=== PATIENT | male | born 1970 | race Hispanic/Latino ===

== ENCOUNTER 2020-05-04 18:53 | Inpatient (IN) | payer SELFPAY ==
[~2020-05-04] VITALS: Ht 162.6 cm; Wt 98.4 kg
[2020-05-04 19:00] VITALS: BP 160/99
[2020-05-04 19:15] LABS: BASOPHILS % (AUTO) 0.1 % (0.0-5.0); EOSINOPHILS % (AUTO) 3.6 % (0.0-8.0); HEMATOCRIT 42.3 % (42-54); MEAN CORPUSCULAR HEMOGLOBIN 29.1 pg (27.0-33.0); MEAN CORPUSCULAR HGB CONC 33.8 g/dL (32.0-36.0); MEAN CORPUSCULAR VOLUME 86.2 fL (79-99); MONOCYTES % (AUTO) 2.6 % (3.0-13.0); NEUTROPHILS % (AUTO) 89.4 % (40.0-77.0); PLATELET COUNT (AUTO) 108 K/uL (130-400); RED BLOOD CELL COUNT(AUTO) 4.91 MIL/uL (4.50-6.20); RED CELL DISTRIBUTION WIDTH 13.2 % (11.0-15.5); WHITE BLOOD COUNT (AUTO) 17.4 K/uL (4.8-10.8)
[2020-05-04 19:17] LABS: ABG BASE EXCESS 4.9 mmol/L (-2.0-3.0); ABG HCO3 29.5 mmol/L (21.0-28.0); ABG OXYGEN SATURATION 99.2 % (95.0-99.0); ABG PCO2 43 mmHg (35-48)
[2020-05-04 19:28] LABS: INR 0.96 (0.85-1.15); PROTHROMBIN TIME 10.5 SEC (9.6-11.6)
[2020-05-04 19:29] LABS: PARTIAL THROMBOPLASTIN TIME 22.7 SEC (26.3-35.5)
[2020-05-04 19:38] LABS: B-TYPE NATRIURETIC PEPTIDE 214 pg/mL (0-100)
[2020-05-04 19:49] LABS: CREATININE 1.2 mg/dL (0.5-1.5); POTASSIUM 4.3 mmol/L (3.5-5.1)
[2020-05-04 19:53] LABS: ALBUMIN 1.6 g/dL (3.5-5.0); BILIRUBIN,TOTAL 0.7 mg/dL (0.2-1.0); TOTAL PROTEIN, SERUM 4.7 g/dL (6.0-8.3)
[2020-05-04 20:15] LABS: APPEARANCE,URINE Clear (CLEAR); BILIRUBIN,URINE Negative (NEGATIVE); COLOR,URINE Yellow (YELLOW); GLUCOSE, URINE (UA) TRACE mg/dL (NEGATIVE); KETONES,URINE Negative (NEGATIVE); LEUKOCYTE ESTERASE ,URINE Negative (NEGATIVE); NITRATE,URINE Negative (NEGATIVE); OCCULT BLOOD,URINE Moderate (NEGATIVE); PH,URINE 5.5 (5.0-8.0); PROTEIN,URINE >=1000 mg/dL (NEGATIVE); UROBILINOGEN,URINE 0.2 mg/dL (0.2-1.0)
[2020-05-04 20:30] LABS: BACTERIA,URINE Few /HPF (None Seen); MUCUS,URINE Moderate LPF (None Seen); SQUAMOUS EPITHELIAL CELL,UR Few /HPF (0-2)
[2020-05-04] MEDS ORDERED: ALBUTEROL 0.083% 2.5 MG/3 ML INH IH PRN (21:30)
[2020-05-04] MEDS ORDERED: ONDANSETRON 4MG INJ IV PRN (21:30)
[2020-05-04] MEDS ORDERED: DiphenhydrAMINE HCL 50 MG/ML VIAL IV PRN (21:30)
[2020-05-04] MEDS ORDERED: LACTULOSE 20 GM/30 ML UDCUP PO PRN (21:30)
[2020-05-04] MEDS ORDERED: ACETAMINOPHEN 325 MG TAB PO PRN ×2 (21:30)
[2020-05-04] MEDS ORDERED: GUAIFENESIN-DM 200/20 MG 10 ML PO PRN (21:30)
[2020-05-04] MEDS ORDERED: DIPHENHYDRAMINE HCL 25 MG CAPSULE PO PRN (21:30)
[2020-05-04] MEDS ORDERED: MAG/ALUM/SIMETH 30 ML UDCUP PO PRN (21:30)
[2020-05-04] MEDS ORDERED: NITROGLYCERIN 0.4 MG SL TAB SL PRN (21:30)
[2020-05-04] MEDS ORDERED: DEXAMETHASONE SOD PHOSPHATE 10MG/ML 1ML VIAL ONE (21:32)
[2020-05-04] MEDS ORDERED: CEFTRIAXONE 1G VIAL ONE (21:32)
[2020-05-04] MEDS ORDERED: AZITHROMYCIN 250 MG TABLET PO ONE (21:33)
[2020-05-04] MEDS ORDERED: ASPIRIN 325 MG TABLET ONE (21:53)
[2020-05-04] MEDS ORDERED: ERGOCALCIFEROL (VITAMIN D2) 50,000 UNIT CAPSULE ONE (22:00)
[2020-05-04] MEDS ORDERED: DOXYCYCLINE 100MG+NS 250ML 250 ML IV ONE (22:01)
[2020-05-04] MEDS: DOXYCYCLINE 100MG+NS 250ML IV SCH (23:00)
[2020-05-05 00:06] VITALS: BP 148/72
[2020-05-05 04:00] VITALS: BP 134/78
[2020-05-05 06:49] LABS: BASOPHILS % (AUTO) 0.1 % (0.0-5.0); HEMATOCRIT 37.2 % (42-54); LYMPHOCYTES % (AUTO) 1.8 % (21.0-51.0); MEAN CORPUSCULAR HEMOGLOBIN 28.7 pg (27.0-33.0); MEAN CORPUSCULAR HGB CONC 33.1 g/dL (32.0-36.0); MEAN CORPUSCULAR VOLUME 86.9 fL (79-99); MONOCYTES % (AUTO) 1.2 % (3.0-13.0); NEUTROPHILS % (AUTO) 96.4 % (40.0-77.0); PLATELET COUNT (AUTO) 97 K/uL (130-400); RED BLOOD CELL COUNT(AUTO) 4.28 MIL/uL (4.50-6.20); RED CELL DISTRIBUTION WIDTH 13.3 % (11.0-15.5); WHITE BLOOD COUNT (AUTO) 15.3 K/uL (4.8-10.8)
[2020-05-05 07:06] LABS: ALBUMIN 1.4 g/dL (3.5-5.0); BILIRUBIN,TOTAL 0.5 mg/dL (0.2-1.0); CRP QUANTITATIVE 11.1 mg/L (0.00-9.0); POTASSIUM 4.3 mmol/L (3.5-5.1); TOTAL PROTEIN, SERUM 4.2 g/dL (6.0-8.3)
[2020-05-05] MEDS ORDERED: ENOXAPARIN SODIUM 40 MG/0.4 ML SYRINGE SQ SCH (09:00)
[2020-05-05] MEDS: ENOXAPARIN SODIUM 40 MG/0.4 ML SYRINGE SQ SCH (09:00)
[2020-05-05] MEDS ORDERED: ERGOCALCIFEROL (VITAMIN D2) 50,000 UNIT CAPSULE PO ONE (09:00)
[2020-05-05 09:04] VITALS: BP 139/85
[2020-05-05] MEDS: ZINC SULFATE 220 CAPSULE PO SCH (09:25)
[2020-05-05] MEDS: ACETYLCYSTEINE 600 MG CAPSULE PO SCH ×2 (09:26→21:53)
[2020-05-05] MEDS: FAMOTIDINE 20MG TAB PO SCH ×2 (09:26→21:53)
[2020-05-05] MEDS: ASCORBIC ACID 500 MG TAB PO SCH (09:26)
[2020-05-05] MEDS: CEFTRIAXONE 1G VIAL IVP SCH ×2 (09:27→21:54)
[2020-05-05] MEDS: LACTULOSE 20 GM/30 ML UDCUP PO SCH ×2 (09:29→21:52)
[2020-05-05 12:12] VITALS: BP 149/87
[2020-05-05] MEDS: DOXYCYCLINE 100MG+NS 250ML IV SCH ×2 (12:25→21:54)
[2020-05-05 18:45] VITALS: BP 136/97
[2020-05-05] MEDS ORDERED: DEXAMETHASONE SOD PHOSPHATE 4 MG/ML 1ML VIAL IVP SCH (21:00)
[2020-05-05] MEDS: FUROSEMIDE 20MG VIAL IV SCH (21:54)
[2020-05-06] VITALS (7 sets, daily range): BP systolic 109–161; BP diastolic 63–95
[2020-05-06 04:58] LABS: BASOPHILS % (AUTO) 0.1 % (0.0-5.0); EOSINOPHILS % (AUTO) 0.2 % (0.0-8.0); HEMATOCRIT 37.5 % (42-54); LYMPHOCYTES % (AUTO) 2.8 % (21.0-51.0); MEAN CORPUSCULAR HEMOGLOBIN 28.5 pg (27.0-33.0); MEAN CORPUSCULAR HGB CONC 33.3 g/dL (32.0-36.0); MEAN CORPUSCULAR VOLUME 85.6 fL (79-99); MONOCYTES % (AUTO) 1.3 % (3.0-13.0); NEUTROPHILS % (AUTO) 95.2 % (40.0-77.0); PLATELET COUNT (AUTO) 97 K/uL (130-400); RED BLOOD CELL COUNT(AUTO) 4.38 MIL/uL (4.50-6.20); RED CELL DISTRIBUTION WIDTH 12.9 % (11.0-15.5); WHITE BLOOD COUNT (AUTO) 14.3 K/uL (4.8-10.8)
[2020-05-06 05:19] LABS: ALBUMIN 1.3 g/dL (3.5-5.0); BILIRUBIN,TOTAL 0.5 mg/dL (0.2-1.0); CREATININE 0.9 mg/dL (0.5-1.5); POTASSIUM 4.2 mmol/L (3.5-5.1); TOTAL PROTEIN, SERUM 4.4 g/dL (6.0-8.3)
[2020-05-06] MEDS ORDERED: DICYCLOMINE HCL 20 MG TAB PO SCH (08:15)
[2020-05-06] MEDS: FUROSEMIDE 20MG VIAL IV SCH ×2 (08:37→20:00)
[2020-05-06] MEDS: ZINC SULFATE 220 CAPSULE PO SCH (08:37)
[2020-05-06] MEDS: FAMOTIDINE 20MG TAB PO SCH ×2 (08:37→19:59)
[2020-05-06] MEDS: ASCORBIC ACID 500 MG TAB PO SCH (08:37)
[2020-05-06] MEDS: LUBIPROSTONE 24 MCG CAP PO SCH (08:37)
[2020-05-06] MEDS: CEFTRIAXONE 1G VIAL IVP SCH (08:37)
[2020-05-06] MEDS: LACTULOSE 20 GM/30 ML UDCUP PO SCH (08:38)
[2020-05-06] MEDS: ENOXAPARIN SODIUM 40 MG/0.4 ML SYRINGE SQ SCH (08:51)
[2020-05-06] MEDS: ACETYLCYSTEINE 600 MG CAPSULE PO SCH (09:03)
[2020-05-06] MEDS: DOXYCYCLINE 100MG+NS 250ML IV SCH (16:48)
[2020-05-06] MEDS ORDERED: LUBIPROSTONE 24 MCG CAP PO SCH (17:00)
[2020-05-07 03:33] VITALS: BP 149/92
[2020-05-07 07:00] VITALS: BP 158/9
[2020-05-07 07:11] LABS: HEMATOCRIT 32.3 % (42-54); LYMPHOCYTES % (AUTO) 7.9 % (21.0-51.0); MEAN CORPUSCULAR HEMOGLOBIN 28.7 pg (27.0-33.0); MEAN CORPUSCULAR HGB CONC 33.1 g/dL (32.0-36.0); MEAN CORPUSCULAR VOLUME 86.6 fL (79-99); MONOCYTES % (AUTO) 4.7 % (3.0-13.0); NEUTROPHILS % (AUTO) 79.2 % (40.0-77.0); PLATELET COUNT (AUTO) 71 K/uL (130-400); RED BLOOD CELL COUNT(AUTO) 3.73 MIL/uL (4.50-6.20); RED CELL DISTRIBUTION WIDTH 13.2 % (11.0-15.5); WHITE BLOOD COUNT (AUTO) 9.5 K/uL (4.8-10.8)
[2020-05-07 07:27] LABS: ALBUMIN 1.1 g/dL (3.5-5.0); BILIRUBIN,TOTAL 0.4 mg/dL (0.2-1.0); CRP QUANTITATIVE 10.3 mg/L (0.00-9.0); POTASSIUM 3.9 mmol/L (3.5-5.1); TOTAL PROTEIN, SERUM 3.8 g/dL (6.0-8.3)
[2020-05-07] MEDS: LUBIPROSTONE 24 MCG CAP PO SCH (09:02)
[2020-05-07] MEDS: FUROSEMIDE 20MG VIAL IV SCH ×2 (09:02→21:07)
[2020-05-07] MEDS: FAMOTIDINE 20MG TAB PO SCH ×2 (09:04→21:07)
[2020-05-07] MEDS: ENOXAPARIN SODIUM 40 MG/0.4 ML SYRINGE SQ SCH (09:05)
[2020-05-07] MEDS: ASCORBIC ACID 500 MG TAB PO SCH (09:05)
[2020-05-07] MEDS: ZINC SULFATE 220 CAPSULE PO SCH (09:05)
[2020-05-07 11:30] VITALS: BP 160/93
[2020-05-07] MEDS ORDERED: PANT40TA54 PO (12:19)
[2020-05-07] MEDS ORDERED: CYCL-309 PO (12:20)
[2020-05-07 16:00] VITALS: BP 150/89
[2020-05-07 19:33] VITALS: BP 150/89
[2020-05-07 23:28] VITALS: BP 139/91
[2020-05-08 03:45] VITALS: BP 141/94
[2020-05-08 05:55] LABS: EOSINOPHILS % (AUTO) 9.9 % (0.0-8.0); HEMATOCRIT 32.4 % (42-54); LYMPHOCYTES % (AUTO) 11.5 % (21.0-51.0); MEAN CORPUSCULAR HEMOGLOBIN 28.5 pg (27.0-33.0); MEAN CORPUSCULAR HGB CONC 32.4 g/dL (32.0-36.0); MONOCYTES % (AUTO) 6.1 % (3.0-13.0); NEUTROPHILS % (AUTO) 72.2 % (40.0-77.0); PLATELET COUNT (AUTO) 105 K/uL (130-400); RED BLOOD CELL COUNT(AUTO) 3.68 MIL/uL (4.50-6.20); WHITE BLOOD COUNT (AUTO) 7.6 K/uL (4.8-10.8)
[2020-05-08 05:57] LABS: HEMOGLOBIN A1C 11.3 % (4.0-6.0)
[2020-05-08 06:03] LABS: CREATININE 1.1 mg/dL (0.5-1.5); POTASSIUM 3.8 mmol/L (3.5-5.1)
[2020-05-08 07:00] VITALS: BP 158/91
[2020-05-08] MEDS ORDERED: INSU200I4 SQ (08:46)
[2020-05-08] MEDS ORDERED: GABA300S PO ×2 (08:47→10:01)
[2020-05-08] MEDS ORDERED: FURO40TA7 PO (08:48)
[2020-05-08] MEDS ORDERED: CARV12.511 PO (08:50)
[2020-05-08] MEDS ORDERED: PRED10TA3 PO ×2 (08:53→17:17)
[2020-05-08] MEDS ORDERED: PRED5TAB PO ×2 (08:56→17:17)
[2020-05-08] MEDS: FUROSEMIDE 20MG VIAL IV SCH ×2 (08:58→21:37)
[2020-05-08] MEDS: ASCORBIC ACID 500 MG TAB PO SCH (09:00)
[2020-05-08] MEDS: ZINC SULFATE 220 CAPSULE PO SCH (09:00)
[2020-05-08] MEDS: ENOXAPARIN SODIUM 40 MG/0.4 ML SYRINGE SQ SCH (09:01)
[2020-05-08] MEDS: FAMOTIDINE 20MG TAB PO SCH ×2 (09:01→21:36)
[2020-05-08] MEDS ORDERED: GABA300C PO ×2 (10:01)
[2020-05-08 11:30] VITALS: BP 138/82
[2020-05-08] MEDS: LUBIPROSTONE 24 MCG CAP PO SCH (12:26)
[2020-05-08 16:00] VITALS: BP 151/103
[2020-05-08] MEDS ORDERED: PHARMACY COMMUNICATION MISC SCH (16:15)
[2020-05-08] MEDS ORDERED: VANCOMYCIN PROTOCOL PER PHARMACY IV SCH (16:30)
[2020-05-08] MEDS ORDERED: LISINOPRIL 10 MG TABLET ONE (16:40)
[2020-05-08] MEDS: GABAPENTIN 300 MG CAPSULE PO SCH ×2 (16:41→21:36)
[2020-05-08] MEDS: INSULIN HUMULIN R 100 UNIT/ML 3ML SQ SCH ×2 (16:44→21:00)
[2020-05-08] MEDS ORDERED: COMPOUND IV REFRIGERATED 1 EACH IVSOLN MISC PRN (17:00)
[2020-05-08] MEDS: VANCOMYCIN 1G 1.5 GM in 0.9% NACL 250ML 250 ML IV SCH (18:03)
[2020-05-08 19:48] VITALS: BP 133/93
[2020-05-08 19:55] VITALS: BP 133/93
[2020-05-08] MEDS: TRESIBA SQ SCH (21:00)
[2020-05-08] MEDS: CARVEDILOL 12.5 MG TABLET PO SCH (21:37)
[2020-05-09] VITALS (7 sets, daily range): BP systolic 114–157; BP diastolic 75–95
[2020-05-09 05:40] LABS: % IRON SATURATION 43.7 % (30-44)
[2020-05-09] MEDS: INSULIN HUMULIN R 100 UNIT/ML 3ML SQ SCH ×5 (05:53→21:24)
[2020-05-09 06:03] LABS: ALBUMIN 1.2 g/dL (3.5-5.0); BILIRUBIN,TOTAL 0.4 mg/dL (0.2-1.0); CREATININE 1.1 mg/dL (0.5-1.5); MAGNESIUM 1.9 mg/dL (1.80-2.40); POTASSIUM 3.9 mmol/L (3.5-5.1); THYROID STIMULATING HORMONE 7.71 uIU/mL (0.36-3.74); URIC ACID 5.8 mg/dL (2.6-7.2)
[2020-05-09] MEDS ORDERED: PREDNISONE 5 MG TABLET PO SCH (09:00)
[2020-05-09] MEDS ORDERED: FUROSEMIDE 40 MG TABLET PO SCH (09:00)
[2020-05-09] MEDS ORDERED: PREDNISONE 10 MG TABLET PO SCH (09:00)
[2020-05-09] MEDS: Vitamin B Complex/Vit C/Folic Acid PO SCH (09:13)
[2020-05-09] MEDS: CARVEDILOL 12.5 MG TABLET PO SCH ×2 (09:13→21:19)
[2020-05-09] MEDS: FAMOTIDINE 20MG TAB PO SCH (09:13)
[2020-05-09] MEDS: GABAPENTIN 300 MG CAPSULE PO SCH ×3 (09:14→21:19)
[2020-05-09] MEDS: ASCORBIC ACID 500 MG TAB PO SCH (09:14)
[2020-05-09] MEDS: LISINOPRIL 10 MG TABLET PO SCH (09:15)
[2020-05-09] MEDS: ZINC SULFATE 220 CAPSULE PO SCH (09:15)
[2020-05-09] MEDS: FUROSEMIDE 40 MG TABLET PO SCH ×2 (09:15→21:20)
[2020-05-09] MEDS: LUBIPROSTONE 24 MCG CAP PO SCH (09:15)
[2020-05-09] MEDS: ENOXAPARIN SODIUM 40 MG/0.4 ML SYRINGE SQ SCH (09:21)
[2020-05-09] MEDS: VANCOMYCIN 1G 1.5 GM in 0.9% NACL 250ML 250 ML IV SCH (09:25)
[2020-05-09] MEDS ORDERED: IOHEXOL-350 75 ML VIAL IV ONE (17:54)
[2020-05-09] MEDS: TRESIBA SQ SCH (21:00)
[2020-05-10 03:49] LABS: EOSINOPHILS % (AUTO) 6.1 % (0.0-8.0); HEMATOCRIT 29.3 % (42-54); LYMPHOCYTES % (AUTO) 18.4 % (21.0-51.0); MEAN CORPUSCULAR HGB CONC 33.4 g/dL (32.0-36.0); MEAN CORPUSCULAR VOLUME 86.7 fL (79-99); NEUTROPHILS % (AUTO) 65.9 % (40.0-77.0); PLATELET COUNT (AUTO) 121 K/uL (130-400); RED BLOOD CELL COUNT(AUTO) 3.38 MIL/uL (4.50-6.20); RED CELL DISTRIBUTION WIDTH 12.9 % (11.0-15.5); WHITE BLOOD COUNT (AUTO) 4.8 K/uL (4.8-10.8)
[2020-05-10 04:14] LABS: CREATININE 1.1 mg/dL (0.5-1.5); POTASSIUM 3.6 mmol/L (3.5-5.1); THYROID STIMULATING HORMONE 9.9 uIU/mL (0.36-3.74)
[2020-05-10 04:34] VITALS: BP 108/43
[2020-05-10 06:12] LABS: HEPATITIS Bs ANTIGEN SCREEN P Negative (Negative)
[2020-05-10] MEDS: INSULIN HUMULIN R 100 UNIT/ML 3ML SQ SCH ×4 (06:53→21:40)
[2020-05-10 08:36] VITALS: BP 123/89
[2020-05-10] MEDS: ZINC SULFATE 220 CAPSULE PO SCH (09:17)
[2020-05-10] MEDS: LUBIPROSTONE 24 MCG CAP PO SCH (09:17)
[2020-05-10] MEDS: PANTOPRAZOLE 40 MG TAB DR PO SCH (09:17)
[2020-05-10] MEDS: GABAPENTIN 300 MG CAPSULE PO SCH ×3 (09:17→21:33)
[2020-05-10] MEDS: FUROSEMIDE 40 MG TABLET PO SCH ×2 (09:18→21:32)
[2020-05-10] MEDS: METOLAZONE 2.5 MG TABLET PO SCH (09:19)
[2020-05-10] MEDS: LISINOPRIL 10 MG TABLET PO SCH (09:19)
[2020-05-10] MEDS: ASCORBIC ACID 500 MG TAB PO SCH (09:19)
[2020-05-10] MEDS: Vitamin B Complex/Vit C/Folic Acid PO SCH (09:19)
[2020-05-10] MEDS: CARVEDILOL 12.5 MG TABLET PO SCH ×2 (09:21→21:35)
[2020-05-10] MEDS: SPIRONOLACTONE 25 MG TAB PO SCH (09:24)
[2020-05-10] MEDS: ENOXAPARIN SODIUM 40 MG/0.4 ML SYRINGE SQ SCH (09:27)
[2020-05-10 11:24] VITALS: BP 144/95
[2020-05-10 16:42] VITALS: BP 137/96
[2020-05-10 19:00] VITALS: BP 125/83
[2020-05-10] MEDS: TRESIBA SQ SCH (21:00)
[2020-05-10 23:55] VITALS: BP 120/83
[2020-05-11 02:41] LABS: PROTEIN,URINE RANDOM 189.8 mg/dL (0-11.9)
[2020-05-11 04:46] VITALS: BP 103/59
[2020-05-11 06:24] LABS: CREATININE 1.3 mg/dL (0.5-1.5); POTASSIUM 3.8 mmol/L (3.5-5.1)
[2020-05-11 06:25] LABS: HEMATOCRIT 28.1 % (42-54); MEAN CORPUSCULAR HEMOGLOBIN 29.2 pg (27.0-33.0); MEAN CORPUSCULAR HGB CONC 33.8 g/dL (32.0-36.0); MEAN CORPUSCULAR VOLUME 86.5 fL (79-99); PLATELET COUNT (AUTO) 132 K/uL (130-400); RED BLOOD CELL COUNT(AUTO) 3.25 MIL/uL (4.50-6.20); WHITE BLOOD COUNT (AUTO) 5.4 K/uL (4.8-10.8)
[2020-05-11] MEDS: INSULIN HUMULIN R 100 UNIT/ML 3ML SQ SCH ×4 (06:41→21:15)
[2020-05-11 07:00] VITALS: BP 142/96
[2020-05-11 07:01] LABS: ABG BASE EXCESS 5.8 mmol/L (-2.0-3.0); ABG HCO3 30.7 mmol/L (21.0-28.0); ABG OXYGEN SATURATION 92.3 % (95.0-99.0); ABG PCO2 45 mmHg (35-48)
[2020-05-11] MEDS: FUROSEMIDE 40 MG TABLET PO SCH (08:24)
[2020-05-11] MEDS: LUBIPROSTONE 24 MCG CAP PO SCH (08:24)
[2020-05-11] MEDS: PANTOPRAZOLE 40 MG TAB DR PO SCH (08:25)
[2020-05-11] MEDS: GABAPENTIN 300 MG CAPSULE PO SCH ×3 (08:25→21:08)
[2020-05-11] MEDS: LISINOPRIL 10 MG TABLET PO SCH (08:25)
[2020-05-11] MEDS: ASCORBIC ACID 500 MG TAB PO SCH (08:25)
[2020-05-11] MEDS: ZINC SULFATE 220 CAPSULE PO SCH (08:26)
[2020-05-11] MEDS: Vitamin B Complex/Vit C/Folic Acid PO SCH (08:26)
[2020-05-11] MEDS: CARVEDILOL 12.5 MG TABLET PO SCH ×2 (08:26→21:08)
[2020-05-11] MEDS: METOLAZONE 2.5 MG TABLET PO SCH (08:26)
[2020-05-11] MEDS: SPIRONOLACTONE 25 MG TAB PO SCH (08:26)
[2020-05-11] MEDS: ENOXAPARIN SODIUM 40 MG/0.4 ML SYRINGE SQ SCH (08:27)
[2020-05-11 10:18] LABS: BAND NEUTROPHILS % (MANUAL) 1 % (0-2); BASOPHILS % (MANUAL) 2 % (0-2); EOSINOPHILS % (MANUAL) 3 % (1-6); LYMPHOCYTES % (MANUAL) 11 % (22-44); MAN.DIFF COMMENT-IMPRESSION MANUAL DIFFERENTIAL; MONOCYTES % (MANUAL) 1 % (2-9); SEGMENTED NEUTROPHILS % 82 % (40-70)
[2020-05-11 10:19] LABS: PLATELET MORPHOLOGY COMMENT SLIGHTLY DECREASED
[2020-05-11 11:00] VITALS: BP 85/50
[2020-05-11 15:00] VITALS: BP 100/67
[2020-05-11 19:31] VITALS: BP 114/69
[2020-05-11] MEDS: TRESIBA SQ SCH (21:00)
[2020-05-12 00:38] VITALS: BP 117/65
[2020-05-12 04:06] VITALS: BP 121/77
[2020-05-12] MEDS: INSULIN HUMULIN R 100 UNIT/ML 3ML SQ SCH ×3 (06:25→16:45)
[2020-05-12] MEDS ORDERED: FUROSEMIDE 40 MG TABLET PO SCH (08:00)
[2020-05-12 08:23] VITALS: BP 135/74
[2020-05-12] MEDS: Vitamin B Complex/Vit C/Folic Acid PO SCH (08:44)
[2020-05-12] MEDS: SPIRONOLACTONE 25 MG TAB PO SCH (08:44)
[2020-05-12] MEDS: LUBIPROSTONE 24 MCG CAP PO SCH (08:44)
[2020-05-12] MEDS: PANTOPRAZOLE 40 MG TAB DR PO SCH (08:45)
[2020-05-12] MEDS: ZINC SULFATE 220 CAPSULE PO SCH (08:45)
[2020-05-12] MEDS: CARVEDILOL 12.5 MG TABLET PO SCH (08:45)
[2020-05-12] MEDS: ASCORBIC ACID 500 MG TAB PO SCH (08:46)
[2020-05-12] MEDS: LISINOPRIL 10 MG TABLET PO SCH (08:46)
[2020-05-12] MEDS: GABAPENTIN 300 MG CAPSULE PO SCH ×2 (08:46→13:29)
[2020-05-12] MEDS: ENOXAPARIN SODIUM 40 MG/0.4 ML SYRINGE SQ SCH (08:47)
[2020-05-12 12:10] VITALS: BP 124/80
[2020-05-12] MEDS ORDERED: TAMSULOSIN HCL 0.4 MG CAP.ER.24H PO SCH (14:00)
[2020-05-12 16:39] VITALS: BP 124/77
[2020-05-12] MEDS ORDERED: SPIR25TA PO (17:04)
[2020-05-12] MEDS ORDERED: LISI10TA24 PO (17:04)
[2020-06-14] MEDS ORDERED: BENZ-70 PO (13:37)
== END 2020-05-12 19:35 | disposition home or self-care (01) | DRG 291 ==
LOC: EDH 18:53 → EDHIP 18:54 → 4AH 05-05 00:06 → 4DH 05-06 15:03
PROVIDERS: ADMIT Family Medicine; ATTEND Family Medicine
DX: I11.0 Hypertensive heart disease with heart failure (principal); I50.31 Acute diastolic (congestive) heart failure; J80 Acute respiratory distress syndrome; N04.9 Nephrotic syndrome with unspecified morphologic changes; E87.0 Hyperosmolality and hypernatremia; E87.3 Alkalosis; N17.9 Acute kidney failure, unspecified; J84.10 Pulmonary fibrosis, unspecified; I27.20 Pulmonary hypertension, unspecified; E11.21 Type 2 diabetes mellitus with diabetic nephropathy; Z20.822 Contact with and (suspected) exposure to COVID-19; D64.9 Anemia, unspecified; E66.9 Obesity, unspecified; E78.00 Pure hypercholesterolemia, unspecified; E78.5 Hyperlipidemia, unspecified; I28.9 Disease of pulmonary vessels, unspecified; Z68.38 Body mass index [BMI] 38.0-38.9, adult; Z99.81 Dependence on supplemental oxygen
CPT/HCPCS: 36415; 36600; 71045; 71250; 71275; 74018; 80048; 80053; 81001; 82550; 82570; 82595; 82728; 82803; 82948; 83036; 83540; 83550; 83605; 83615; 83735; 83880; 84145; 84156; 84165; 84439; 84443; 84484; 84550; 85025; 85378; 85610; 85730; 86038; 86140; 86160; 86215; 86235; 86706; 87040; 87077; 87186; 87340; 87426; 87520; 93005; 93306; 93356; 93970; 97039; 99291; G0378; J0696; J1100; J1650; J1815; J1940; J3370; J3490; J7050; J7512; Q9967; U0003

== ENCOUNTER 2020-06-10 11:52 | Inpatient (IN) | payer OTHER ==
[~2020-06-10] VITALS: Ht 162.6 cm; Wt 111.1 kg
[~2020-06-10 11:52] MED LIST: CARV12.511 PO; FURO40TA7 PO; GABA300C PO; INSU200I4 SQ; LISI10TA24 PO; PRED10TA3 PO; PRED5TAB PO; SPIR25TA PO
[2020-06-10 12:17] LABS: BASOPHILS % (AUTO) 0.7 % (0.0-5.0); EOSINOPHILS % (AUTO) 6.5 % (0.0-8.0); HEMATOCRIT 28.7 % (42-54); LYMPHOCYTES % (AUTO) 17.5 % (21.0-51.0); MEAN CORPUSCULAR HEMOGLOBIN 30.6 pg (27.0-33.0); MEAN CORPUSCULAR HGB CONC 31.4 g/dL (32.0-36.0); MEAN CORPUSCULAR VOLUME 97.6 fL (79-99); MONOCYTES % (AUTO) 5.2 % (3.0-13.0); NEUTROPHILS % (AUTO) 69.6 % (40.0-77.0); PLATELET COUNT (AUTO) 155 K/uL (130-400); RED BLOOD CELL COUNT(AUTO) 2.94 MIL/uL (4.50-6.20); RED CELL DISTRIBUTION WIDTH 15.8 % (11.0-15.5); WHITE BLOOD COUNT (AUTO) 9.6 K/uL (4.8-10.8)
[2020-06-10 12:35] LABS: CREATININE 1.4 mg/dL (0.5-1.5); POTASSIUM 4.4 mmol/L (3.5-5.1)
[2020-06-10 12:38] LABS: INR 1.01 (0.85-1.15)
[2020-06-10 12:40] LABS: ABG BASE EXCESS 3.9 mmol/L (-2.0-3.0); ABG HCO3 29.8 mmol/L (21.0-28.0); ABG OXYGEN SATURATION 73.7 % (95.0-99.0); ABG PCO2 49 mmHg (35-48)
[2020-06-10 12:40] LABS: BILIRUBIN,TOTAL 0.3 mg/dL (0.2-1.0); PARTIAL THROMBOPLASTIN TIME 27.4 SEC (26.3-35.5); TOTAL PROTEIN, SERUM 5.7 g/dL (6.0-8.3)
[2020-06-10] MEDS ORDERED: DEXAMETHASONE SOD PHOSPHATE 10MG/ML 1ML VIAL ONE (12:52)
[2020-06-10] MEDS ORDERED: AZITHROMYCIN 500MG+NS 250ML 250 ML IV ONE (12:52)
[2020-06-10] MEDS ORDERED: CEFTRIAXONE SODIUM 1 GM ONE (12:52)
[2020-06-10 13:27] LABS: TROPONIN I 0.11 ng/mL (0.00-0.06)
[2020-06-10 14:09] LABS: APPEARANCE,URINE Clear (CLEAR); BILIRUBIN,URINE Negative (NEGATIVE); COLOR,URINE Yellow (YELLOW); GLUCOSE, URINE (UA) 250 mg/dL (NEGATIVE); KETONES,URINE Negative (NEGATIVE); LEUKOCYTE ESTERASE ,URINE Negative (NEGATIVE); NITRATE,URINE Negative (NEGATIVE); OCCULT BLOOD,URINE Small (NEGATIVE); PH,URINE 6.5 (5.0-8.0); PROTEIN,URINE 300 mg/dL (NEGATIVE)
[2020-06-10 14:22] LABS: BACTERIA,URINE Few /HPF (None Seen); MUCUS,URINE Rare LPF (None Seen); SQUAMOUS EPITHELIAL CELL,UR Rare /HPF (0-2)
[2020-06-10] MEDS ORDERED: ACETAMINOPHEN 325 MG TAB PO PRN (15:30)
[2020-06-10] MEDS ORDERED: ALBUTEROL INHALER 90MCG/INH IH PRN (15:45)
[2020-06-10 15:55] LABS: RETICULOCYTE % (AUTO) 3.47 % (0.42-2.23)
[2020-06-10 16:15] LABS: HEMOGLOBIN A1C 9.1 % (4.0-6.0)
[2020-06-10 16:31] LABS: % IRON SATURATION 16.5 % (30-44)
[2020-06-10] MEDS ORDERED: DEXTROSE 50%-WATER 50 ML DISP.SYRIN IV PRN (17:00)
[2020-06-10] MEDS ORDERED: GLUCAGON 1MG KIT 1 MG ML IM PRN (17:00)
[2020-06-10] MEDS: INSULIN HUMULIN R 100 UNIT/ML 3ML SQ SCH ×2 (18:21→21:37)
[2020-06-10 18:23] VITALS: BP 138/67
[2020-06-10 19:00] VITALS: BP 124/62
[2020-06-10] MEDS: FUROSEMIDE 10 MG/ML 2ML VIAL IV SCH (19:30)
[2020-06-10] MEDS ORDERED: INSLAN SQ (20:38)
[2020-06-10] MEDS ORDERED: INSULIN GLARGINE 100 UNITS/ML 10 ML VIAL SQ SCH (21:00)
[2020-06-10] MEDS: FAMOTIDINE/PF 20 MG/2 ML VIAL IV SCH (21:34)
[2020-06-10] MEDS: INSULIN GLARGINE 100 UNITS/ML 10 ML VIAL SQ SCH (21:35)
[2020-06-10] MEDS: BENZONATATE 100 MG CAPSULE PO SCH (21:35)
[2020-06-10 23:00] VITALS: BP 171/101
[2020-06-11 03:00] VITALS: BP 161/100
[2020-06-11] MEDS: FUROSEMIDE 10 MG/ML 2ML VIAL IV SCH ×3 (03:30→21:25)
[2020-06-11 04:54] LABS: BASOPHILS % (AUTO) 0.2 % (0.0-5.0); HEMATOCRIT 30.4 % (42-54); LYMPHOCYTES % (AUTO) 12.5 % (21.0-51.0); MEAN CORPUSCULAR HEMOGLOBIN 30.1 pg (27.0-33.0); MEAN CORPUSCULAR HGB CONC 31.6 g/dL (32.0-36.0); MEAN CORPUSCULAR VOLUME 95.3 fL (79-99); NEUTROPHILS % (AUTO) 83.6 % (40.0-77.0); PLATELET COUNT (AUTO) 186 K/uL (130-400); RED BLOOD CELL COUNT(AUTO) 3.19 MIL/uL (4.50-6.20); RED CELL DISTRIBUTION WIDTH 15.1 % (11.0-15.5); WHITE BLOOD COUNT (AUTO) 11.8 K/uL (4.8-10.8)
[2020-06-11 05:09] LABS: BILIRUBIN,TOTAL 0.2 mg/dL (0.2-1.0); CREATININE 1.5 mg/dL (0.5-1.5); POTASSIUM 4.6 mmol/L (3.5-5.1); TOTAL PROTEIN, SERUM 5.9 g/dL (6.0-8.3)
[2020-06-11 05:10] LABS: B-TYPE NATRIURETIC PEPTIDE 1560 pg/mL (0-100)
[2020-06-11] MEDS: INSULIN HUMULIN R 100 UNIT/ML 3ML SQ SCH ×4 (06:11→21:00)
[2020-06-11 07:39] VITALS: BP 166/99
[2020-06-11] MEDS: AZITHROMYCIN 500MG+NS 250ML 250 ML IV SCH (07:59)
[2020-06-11] MEDS: CEFTRIAXONE SODIUM 1 GM IVP SCH (07:59)
[2020-06-11] MEDS: ENOXAPARIN SODIUM 40 MG/0.4 ML SYRINGE SQ SCH (08:00)
[2020-06-11] MEDS: FAMOTIDINE/PF 20 MG/2 ML VIAL IV SCH ×2 (08:01→21:26)
[2020-06-11] MEDS: DEXAMETHASONE SOD PHOSPHATE 4 MG/ML 1ML VIAL IVP SCH (08:01)
[2020-06-11] MEDS: ASCORBIC ACID 500 MG TAB PO SCH (08:01)
[2020-06-11] MEDS: ZINC SULFATE 220 CAPSULE PO SCH (08:01)
[2020-06-11] MEDS: CARVEDILOL 12.5 MG TABLET PO SCH ×2 (08:02→21:27)
[2020-06-11] MEDS: BENZONATATE 100 MG CAPSULE PO SCH ×3 (08:03→21:26)
[2020-06-11 12:00] VITALS: BP 133/80
[2020-06-11 13:19] LABS: CREATININE 1.6 mg/dL (0.5-1.5); POTASSIUM 4.8 mmol/L (3.5-5.1)
[2020-06-11 16:31] VITALS: BP 146/87
[2020-06-11 19:00] VITALS: BP 148/68
[2020-06-11] MEDS: INSULIN GLARGINE 100 UNITS/ML 10 ML VIAL SQ SCH (21:00)
[2020-06-11] MEDS: ATORVASTATIN CALCIUM 40 MG TABLET PO SCH (21:26)
[2020-06-12] VITALS (7 sets, daily range): BP systolic 114–157; BP diastolic 41–94
[2020-06-12 05:03] LABS: BASOPHILS % (AUTO) 0.4 % (0.0-5.0); HEMATOCRIT 27.6 % (42-54); LYMPHOCYTES % (AUTO) 14.4 % (21.0-51.0); MEAN CORPUSCULAR HEMOGLOBIN 30.6 pg (27.0-33.0); MEAN CORPUSCULAR HGB CONC 32.6 g/dL (32.0-36.0); MEAN CORPUSCULAR VOLUME 93.9 fL (79-99); MONOCYTES % (AUTO) 5.6 % (3.0-13.0); NEUTROPHILS % (AUTO) 79.2 % (40.0-77.0); PLATELET COUNT (AUTO) 201 K/uL (130-400); RED BLOOD CELL COUNT(AUTO) 2.94 MIL/uL (4.50-6.20); RED CELL DISTRIBUTION WIDTH 15.6 % (11.0-15.5); WHITE BLOOD COUNT (AUTO) 13.1 K/uL (4.8-10.8)
[2020-06-12 05:23] LABS: ALBUMIN 1.9 g/dL (3.5-5.0); BILIRUBIN,TOTAL 0.1 mg/dL (0.2-1.0); CREATININE 1.4 mg/dL (0.5-1.5); POTASSIUM 4.1 mmol/L (3.5-5.1); TOTAL PROTEIN, SERUM 5.4 g/dL (6.0-8.3)
[2020-06-12] MEDS: INSULIN HUMULIN R 100 UNIT/ML 3ML SQ SCH ×4 (06:16→20:49)
[2020-06-12] MEDS: FUROSEMIDE 10 MG/ML 2ML VIAL IV SCH ×3 (06:19→20:44)
[2020-06-12] MEDS: FAMOTIDINE/PF 20 MG/2 ML VIAL IV SCH ×2 (09:02→20:44)
[2020-06-12] MEDS: ZINC SULFATE 220 CAPSULE PO SCH (09:02)
[2020-06-12] MEDS: BENZONATATE 100 MG CAPSULE PO SCH ×3 (09:02→20:44)
[2020-06-12] MEDS: CARVEDILOL 12.5 MG TABLET PO SCH ×2 (09:02→20:45)
[2020-06-12] MEDS: ASCORBIC ACID 500 MG TAB PO SCH (09:02)
[2020-06-12] MEDS: DEXAMETHASONE SOD PHOSPHATE 4 MG/ML 1ML VIAL IVP SCH (09:02)
[2020-06-12] MEDS: CEFTRIAXONE SODIUM 1 GM IVP SCH (09:03)
[2020-06-12] MEDS: AZITHROMYCIN 500MG+NS 250ML 250 ML IV SCH (09:03)
[2020-06-12] MEDS: ENOXAPARIN SODIUM 40 MG/0.4 ML SYRINGE SQ SCH (09:04)
[2020-06-12] MEDS ORDERED: PROMETHAZINE HCL 25 MG/ML 1ML AMPULE IM SCH (11:26)
[2020-06-12] MEDS: ATORVASTATIN CALCIUM 40 MG TABLET PO SCH (20:46)
[2020-06-12] MEDS: INSULIN GLARGINE 100 UNITS/ML 10 ML VIAL SQ SCH (20:49)
[2020-06-13 03:51] VITALS: BP 134/80
[2020-06-13] MEDS: FUROSEMIDE 10 MG/ML 2ML VIAL IV SCH ×4 (03:53→22:34)
[2020-06-13 04:20] LABS: BASOPHILS % (AUTO) 0.3 % (0.0-5.0); HEMATOCRIT 27.3 % (42-54); LYMPHOCYTES % (AUTO) 13.1 % (21.0-51.0); MEAN CORPUSCULAR HEMOGLOBIN 29.7 pg (27.0-33.0); MEAN CORPUSCULAR HGB CONC 31.1 g/dL (32.0-36.0); MEAN CORPUSCULAR VOLUME 95.5 fL (79-99); MONOCYTES % (AUTO) 5.6 % (3.0-13.0); NEUTROPHILS % (AUTO) 80.5 % (40.0-77.0); PLATELET COUNT (AUTO) 198 K/uL (130-400); RED BLOOD CELL COUNT(AUTO) 2.86 MIL/uL (4.50-6.20); RED CELL DISTRIBUTION WIDTH 15.4 % (11.0-15.5)
[2020-06-13 04:43] LABS: ALBUMIN 1.8 g/dL (3.5-5.0); BILIRUBIN,TOTAL 0.2 mg/dL (0.2-1.0); CREATININE 1.5 mg/dL (0.5-1.5); TOTAL PROTEIN, SERUM 5.2 g/dL (6.0-8.3)
[2020-06-13] MEDS: INSULIN HUMULIN R 100 UNIT/ML 3ML SQ SCH ×4 (07:04→22:51)
[2020-06-13] MEDS: AZITHROMYCIN 500MG+NS 250ML 250 ML IV SCH (07:58)
[2020-06-13] MEDS: CEFTRIAXONE SODIUM 1 GM IVP SCH (07:58)
[2020-06-13] MEDS: DEXAMETHASONE SOD PHOSPHATE 4 MG/ML 1ML VIAL IVP SCH (08:00)
[2020-06-13] MEDS: FAMOTIDINE/PF 20 MG/2 ML VIAL IV SCH ×2 (08:00→22:31)
[2020-06-13] MEDS: CARVEDILOL 12.5 MG TABLET PO SCH ×2 (08:01→22:31)
[2020-06-13] MEDS: ENOXAPARIN SODIUM 40 MG/0.4 ML SYRINGE SQ SCH (08:01)
[2020-06-13] MEDS: ASCORBIC ACID 500 MG TAB PO SCH (08:02)
[2020-06-13] MEDS: ZINC SULFATE 220 CAPSULE PO SCH (08:02)
[2020-06-13 08:16] VITALS: BP 150/79
[2020-06-13] MEDS: BENZONATATE 100 MG CAPSULE PO SCH ×3 (08:19→22:31)
[2020-06-13 11:38] VITALS: BP 144/92
[2020-06-13 16:00] VITALS: BP 170/92
[2020-06-13 20:00] VITALS: BP 139/83
[2020-06-13] MEDS: ATORVASTATIN CALCIUM 40 MG TABLET PO SCH (22:31)
[2020-06-13] MEDS: INSULIN GLARGINE 100 UNITS/ML 10 ML VIAL SQ SCH (22:50)
[2020-06-14 00:39] VITALS: BP 136/73
[2020-06-14] MEDS: FUROSEMIDE 10 MG/ML 2ML VIAL IV SCH ×2 (03:30→11:54)
[2020-06-14 05:20] LABS: BASOPHILS % (AUTO) 0.3 % (0.0-5.0); EOSINOPHILS % (AUTO) 0.1 % (0.0-8.0); HEMATOCRIT 27.2 % (42-54); LYMPHOCYTES % (AUTO) 16.7 % (21.0-51.0); MEAN CORPUSCULAR HEMOGLOBIN 30.7 pg (27.0-33.0); MEAN CORPUSCULAR HGB CONC 33.1 g/dL (32.0-36.0); MEAN CORPUSCULAR VOLUME 92.8 fL (79-99); MONOCYTES % (AUTO) 8.5 % (3.0-13.0); NEUTROPHILS % (AUTO) 74.1 % (40.0-77.0); PLATELET COUNT (AUTO) 192 K/uL (130-400); RED BLOOD CELL COUNT(AUTO) 2.93 MIL/uL (4.50-6.20); RED CELL DISTRIBUTION WIDTH 14.8 % (11.0-15.5); WHITE BLOOD COUNT (AUTO) 11.9 K/uL (4.8-10.8)
[2020-06-14 05:31] LABS: ALBUMIN 1.8 g/dL (3.5-5.0); BILIRUBIN,TOTAL 0.2 mg/dL (0.2-1.0); CREATININE 1.4 mg/dL (0.5-1.5); POTASSIUM 3.8 mmol/L (3.5-5.1); TOTAL PROTEIN, SERUM 4.9 g/dL (6.0-8.3)
[2020-06-14 05:45] LABS: B-TYPE NATRIURETIC PEPTIDE 830 pg/mL (0-100)
[2020-06-14 05:50] VITALS: BP 136/82
[2020-06-14] MEDS: INSULIN HUMULIN R 100 UNIT/ML 3ML SQ SCH ×2 (06:33→11:30)
[2020-06-14 08:01] VITALS: BP 145/90
[2020-06-14] MEDS: ZINC SULFATE 220 CAPSULE PO SCH (08:42)
[2020-06-14] MEDS: BENZONATATE 100 MG CAPSULE PO SCH ×2 (08:42→14:05)
[2020-06-14] MEDS: FAMOTIDINE/PF 20 MG/2 ML VIAL IV SCH (08:43)
[2020-06-14] MEDS: ASCORBIC ACID 500 MG TAB PO SCH (08:43)
[2020-06-14] MEDS: CARVEDILOL 12.5 MG TABLET PO SCH (08:43)
[2020-06-14] MEDS: ENOXAPARIN SODIUM 40 MG/0.4 ML SYRINGE SQ SCH (08:43)
[2020-06-14 11:51] VITALS: BP 145/90
[2020-06-14] MEDS ORDERED: CARV12.580 PO (13:37)
[2020-06-14] MEDS ORDERED: FURO10VI5 IV (13:37)
[2020-06-14] MEDS ORDERED: ALBUHFA IH (13:37)
[2020-06-14] MEDS ORDERED: BENZ-51 PO (13:37)
[2020-06-14] MEDS ORDERED: ATOR40TA69 PO (13:37)
[2020-06-14] MEDS ORDERED: FURO20TA6 PO (14:02)
== END 2020-06-14 15:15 | disposition home or self-care (01) | DRG 193 ==
LOC: EDH 11:52 → EDHIP 11:53 → 2AH 16:35 → 4DH 06-12 10:38
PROVIDERS: ADMIT Internal Medicine; ATTEND Internal Medicine
DX: J18.9 Pneumonia, unspecified organism (principal); J96.01 Acute respiratory failure with hypoxia; I31.3 Pericardial effusion (noninflammatory); Z68.41 Body mass index [BMI] 40.0-44.9, adult; I50.9 Heart failure, unspecified; I11.0 Hypertensive heart disease with heart failure; E11.9 Type 2 diabetes mellitus without complications; D72.810 Lymphocytopenia; Z20.822 Contact with and (suspected) exposure to COVID-19; D64.9 Anemia, unspecified; E66.9 Obesity, unspecified; Z91.19 Patient's noncompliance with other medical treatment and regimen
CPT/HCPCS: 36415; 36600; 71045; 71250; 80048; 80053; 81001; 82550; 82607; 82728; 82803; 82948; 83036; 83605; 83735; 83874; 83880; 84145; 84484; 85025; 85378; 85610; 85730; 86140; 87040; 87071; 87205; 87426; 87804; 93005; 93970; 99291; G0378; J0456; J0696; J1100; J1650; J1815; J1940; J3490; U0003

== ENCOUNTER 2020-08-10 16:42 | Emergency (ER) | payer SELFPAY ==
[~2020-08-10 16:42] MED LIST changes: +ALBUHFA IH; +ATOR40TA69 PO; +BENZ-70 PO; +CARV12.580 PO; +FURO20TA6 PO; +INSLAN SQ
[2020-08-10] MEDS ORDERED: KETOROLAC TROMETHAMINE 60 MG/2 ML VIAL ONE (17:59)
[2020-08-10] MEDS ORDERED: CYCLOBENZAPRINE HCL 10 MG TABLET ONE (18:00)
[2020-08-10 18:15] LABS: APPEARANCE,URINE Clear (CLEAR); BILIRUBIN,URINE Negative (NEGATIVE); COLOR,URINE Yellow (YELLOW); GLUCOSE, URINE (UA) 250 mg/dL (NEGATIVE); KETONES,URINE Negative (NEGATIVE); LEUKOCYTE ESTERASE ,URINE Negative (NEGATIVE); NITRATE,URINE Negative (NEGATIVE); OCCULT BLOOD,URINE Moderate (NEGATIVE); PROTEIN,URINE >=1000 mg/dL (NEGATIVE); UROBILINOGEN,URINE 0.2 mg/dL (0.2-1.0)
[2020-08-10 18:23] LABS: BACTERIA,URINE Few /HPF (None Seen); MUCUS,URINE Moderate LPF (None Seen); SQUAMOUS EPITHELIAL CELL,UR Few /HPF (0-2)
[2020-08-10 18:58] LABS: BASOPHILS % (AUTO) 0.6 % (0.0-5.0); EOSINOPHILS % (AUTO) 3.1 % (0.0-8.0); HEMATOCRIT 39.5 % (42-54); LYMPHOCYTES % (AUTO) 26.8 % (21.0-51.0); MEAN CORPUSCULAR HEMOGLOBIN 29.5 pg (27.0-33.0); MEAN CORPUSCULAR HGB CONC 32.9 g/dL (32.0-36.0); MEAN CORPUSCULAR VOLUME 89.6 fL (79-99); MONOCYTES % (AUTO) 4.9 % (3.0-13.0); NEUTROPHILS % (AUTO) 64.4 % (40.0-77.0); PLATELET COUNT (AUTO) 278 K/uL (130-400); RED BLOOD CELL COUNT(AUTO) 4.41 MIL/uL (4.50-6.20); RED CELL DISTRIBUTION WIDTH 12.6 % (11.0-15.5); WHITE BLOOD COUNT (AUTO) 10.7 K/uL (4.8-10.8)
[2020-08-10 19:09] LABS: CREATININE 1.9 mg/dL (0.5-1.5); POTASSIUM 4.1 mmol/L (3.5-5.1)
[2020-08-10 19:14] LABS: ALBUMIN 2.7 g/dL (3.5-5.0); BILIRUBIN,TOTAL 0.3 mg/dL (0.2-1.0); TOTAL PROTEIN, SERUM 7.7 g/dL (6.0-8.3)
[2020-08-10] MEDS ORDERED: CEPHALEXIN 500 MG CAPSULE ONE (19:15)
== END 2020-08-10 19:24 | disposition home or self-care (01) ==
LOC: EDH 16:42
DX: M54.5 Low back pain (principal); R31.9 Hematuria, unspecified; I10 Essential (primary) hypertension; E11.9 Type 2 diabetes mellitus without complications; E78.00 Pure hypercholesterolemia, unspecified; Z86.16 Personal history of COVID-19
CPT/HCPCS: 36415; 71045; 72100; 80053; 81001; 85025; 96372; 99284; J1885

== ENCOUNTER 2021-09-02 22:16 | Inpatient (IN) | payer OTHER ==
[~2021-09-02] VITALS: Ht 162.6 cm; Wt 109.6 kg
[2021-09-02 23:02] LABS: BASOPHILS % (AUTO) 0.4 % (0.0-5.0); EOSINOPHILS % (AUTO) 0.1 % (0.0-8.0); HEMATOCRIT 30.1 % (42-54); LYMPHOCYTES % (AUTO) 6.9 % (21.0-51.0); MEAN CORPUSCULAR HGB CONC 31.2 g/dL (32.0-36.0); MEAN CORPUSCULAR VOLUME 96.2 fL (79-99); MONOCYTES % (AUTO) 6.5 % (3.0-13.0); NEUTROPHILS % (AUTO) 85.6 % (40.0-77.0); PLATELET COUNT (AUTO) 180 K/uL (130-400); RED BLOOD CELL COUNT(AUTO) 3.13 MIL/uL (4.50-6.20); WHITE BLOOD COUNT (AUTO) 14.7 K/uL (4.8-10.8)
[2021-09-02 23:14] LABS: INR 1.04 (0.85-1.15); PROTHROMBIN TIME 11.3 SEC (9.6-11.6)
[2021-09-02 23:15] LABS: CREATININE 5.1 mg/dL (0.5-1.5); POTASSIUM 4.9 mmol/L (3.5-5.1)
[2021-09-02 23:16] LABS: PARTIAL THROMBOPLASTIN TIME 33.9 SEC (26.3-35.5)
[2021-09-02 23:26] LABS: ALBUMIN 2.2 g/dL (3.5-5.0); BILIRUBIN,TOTAL 0.8 mg/dL (0.2-1.0); TOTAL PROTEIN, SERUM 6.5 g/dL (6.0-8.3)
[2021-09-02] MEDS ORDERED: CEFTRIAXONE 1G VIAL IVP STA (23:44)
[2021-09-02] MEDS ORDERED: AZITHROMYCIN 500MG+NS 250ML 250 ML ONE (23:54)
[2021-09-03] MEDS ORDERED: AZITHROMYCIN 500MG+NS 250ML 250 ML IV SCH
[2021-09-03] MEDS ORDERED: AZITHROMYCIN 500MG+NS 250ML IVPB SCH
[2021-09-03] MEDS ORDERED: CEFTRIAXONE 1G VIAL IV SCH (00:30)
[2021-09-03] MEDS ORDERED: 0.9%NACL 1000ML 1,000 ML IV SCH ×2 (00:30)
[2021-09-03] MEDS ORDERED: GUAIFENESIN-CODEINE 5 ML SYRUP PO PRN (00:30)
[2021-09-03] MEDS ORDERED: ACETAMINOPHEN 325 MG TAB PO PRN (00:30)
[2021-09-03] MEDS: DOXYCYCLINE 100MG+NS 250ML 250 ML IV SCH ×2 (01:05→11:52)
[2021-09-03 01:43] LABS: HEMOGLOBIN A1C 7.6 % (4.0-6.0)
[2021-09-03 03:26] VITALS: BP 151/57
[2021-09-03 04:00] VITALS: BP 119/57
[2021-09-03 04:11] LABS: APPEARANCE,URINE Cloudy (CLEAR); BILIRUBIN,URINE Negative (NEGATIVE); COLOR,URINE Yellow (YELLOW); GLUCOSE, URINE (UA) 500 mg/dL (NEGATIVE); KETONES,URINE Trace mg/dL (NEGATIVE); LEUKOCYTE ESTERASE ,URINE Negative (NEGATIVE); NITRATE,URINE Negative (NEGATIVE); OCCULT BLOOD,URINE Small (NEGATIVE); PH,URINE 5.5 (5.0-8.0); PROTEIN,URINE >=1000 mg/dL (NEGATIVE)
[2021-09-03 05:00] LABS: BACTERIA,URINE Rare /HPF (None Seen); WBC,URINE 0-1 /HPF (0-1)
[2021-09-03 05:01] LABS: SPERM,URINE Moderate /HPF (None Seen); SQUAMOUS EPITHELIAL CELL,UR Few /HPF (0-2)
[2021-09-03] MEDS: INSULIN HUMULIN R 100 UNIT/ML 3ML SQ SCH ×4 (06:02→20:22)
[2021-09-03] MEDS: IPRATROPIUM/ALBUTEROL SULFATE 3 ML SOLUTION IH SCH ×4 (06:44→23:08)
[2021-09-03 08:40] LABS: BASOPHILS % (AUTO) 0.5 % (0.0-5.0); EOSINOPHILS % (AUTO) 0.4 % (0.0-8.0); HEMATOCRIT 29.4 % (42-54); MEAN CORPUSCULAR HEMOGLOBIN 29.8 pg (27.0-33.0); MEAN CORPUSCULAR HGB CONC 30.3 g/dL (32.0-36.0); MEAN CORPUSCULAR VOLUME 98.3 fL (79-99); MONOCYTES % (AUTO) 7.7 % (3.0-13.0); NEUTROPHILS % (AUTO) 80.7 % (40.0-77.0); PLATELET COUNT (AUTO) 171 K/uL (130-400); RED BLOOD CELL COUNT(AUTO) 2.99 MIL/uL (4.50-6.20); WHITE BLOOD COUNT (AUTO) 13.7 K/uL (4.8-10.8)
[2021-09-03] MEDS: CEFEPIME HCL 2 GM VIAL IVP SCH (08:43)
[2021-09-03] MEDS: HEPARIN 5,000 UNIT VIAL SQ SCH ×3 (08:45→20:46)
[2021-09-03] MEDS: FAMOTIDINE 20MG VIAL IV SCH (09:00)
[2021-09-03 09:02] LABS: ALBUMIN 2.1 g/dL (3.5-5.0); BILIRUBIN,TOTAL 0.6 mg/dL (0.2-1.0); CREATININE 5.1 mg/dL (0.5-1.5); MAGNESIUM 1.8 mg/dL (1.80-2.40); PHOSPHORUS 5.4 mg/dL (2.5-4.9); POTASSIUM 4.9 mmol/L (3.5-5.1); THYROID STIMULATING HORMONE 2.57 uIU/mL (0.36-3.74); TOTAL PROTEIN, SERUM 6.3 g/dL (6.0-8.3); URIC ACID 7.8 mg/dL (2.6-7.2)
[2021-09-03 09:21] LABS: % IRON SATURATION 6.8 % (30-44)
[2021-09-03 09:26] LABS: CRP QUANTITATIVE 302.5 mg/L (0.00-9.0)
[2021-09-03 09:41] LABS: ERYTHROCYTE SEDIMENTATION RATE 94 MM/HR (0-15)
[2021-09-03] MEDS: BUDESONIDE 0.5 MG/2 ML INH IH SCH ×2 (11:30→18:35)
[2021-09-03] MEDS: LINEZOLID 600 MG/ISO-OSM 300 ML IV SCH ×2 (11:51→22:43)
[2021-09-03] MEDS: CARVEDILOL 6.25 MG TABLET PO SCH ×2 (11:52→22:45)
[2021-09-03] MEDS: FUROSEMIDE 40MG VIAL IV SCH (11:53)
[2021-09-03 12:00] VITALS: BP 104/60
[2021-09-03] MEDS ORDERED: 0.9% NACL 250ML 250 ML ONE (12:37)
[2021-09-03 14:02] LABS: ABG BASE EXCESS -5.7 mmol/L (-2.0-3.0); ABG HCO3 20.4 mmol/L (21.0-28.0); ABG OXYGEN SATURATION 82.6 % (95.0-99.0); ABG PCO2 42 mmHg (35-48)
[2021-09-03 14:41] LABS: CREATININE,URINE RANDOM 109 mg/dL (30-135); SODIUM,URINE RANDOM 15 mmol/l (40-220)
[2021-09-03 16:00] VITALS: BP 112/61
[2021-09-03] MEDS: SODIUM BICARBONATE 650 MG TAB PO SCH ×2 (17:34→20:45)
[2021-09-03 19:58] VITALS: BP 114/63
[2021-09-03 23:37] VITALS: BP 126/68
[2021-09-04] MEDS ORDERED: 0.9% NACL 250ML 250 ML ONE ×2 (00:21→14:20)
[2021-09-04] MEDS: FUROSEMIDE 40MG VIAL IV SCH ×2 (00:25→12:10)
[2021-09-04] MEDS: DOXYCYCLINE 100MG+NS 250ML 250 ML IV SCH ×2 (00:25→17:12)
[2021-09-04 04:34] VITALS: BP 126/61
[2021-09-04 05:21] LABS: BASOPHILS % (AUTO) 0.4 % (0.0-5.0); EOSINOPHILS % (AUTO) 1.8 % (0.0-8.0); LYMPHOCYTES % (AUTO) 9.9 % (21.0-51.0); MEAN CORPUSCULAR HEMOGLOBIN 30.7 pg (27.0-33.0); MEAN CORPUSCULAR HGB CONC 31.7 g/dL (32.0-36.0); MEAN CORPUSCULAR VOLUME 97.1 fL (79-99); MONOCYTES % (AUTO) 6.8 % (3.0-13.0); NEUTROPHILS % (AUTO) 80.3 % (40.0-77.0); PLATELET COUNT (AUTO) 192 K/uL (130-400); RED BLOOD CELL COUNT(AUTO) 3.09 MIL/uL (4.50-6.20); RED CELL DISTRIBUTION WIDTH 13.1 % (11.0-15.5); WHITE BLOOD COUNT (AUTO) 13.7 K/uL (4.8-10.8)
[2021-09-04 05:33] LABS: CREATININE 5.3 mg/dL (0.5-1.5); MAGNESIUM 1.9 mg/dL (1.80-2.40); POTASSIUM 4.8 mmol/L (3.5-5.1)
[2021-09-04] MEDS: INSULIN HUMULIN R 100 UNIT/ML 3ML SQ SCH ×4 (05:55→20:48)
[2021-09-04] MEDS: BUDESONIDE 0.5 MG/2 ML INH IH SCH ×2 (06:08→18:22)
[2021-09-04] MEDS: IPRATROPIUM/ALBUTEROL SULFATE 3 ML SOLUTION IH SCH ×4 (06:08→23:38)
[2021-09-04 07:20] VITALS: BP 132/65
[2021-09-04] MEDS: HEPARIN 5,000 UNIT VIAL SQ SCH ×3 (08:04→20:46)
[2021-09-04] MEDS: CEFEPIME HCL 2 GM VIAL IVP SCH (08:05)
[2021-09-04] MEDS: SODIUM BICARBONATE 650 MG TAB PO SCH ×3 (08:05→20:40)
[2021-09-04] MEDS: IRON SUCROSE COMPLEX 100 MG/5 ML VIAL IVP SCH (08:05)
[2021-09-04] MEDS ORDERED: IRON SUCROSE COMPLEX 100 MG in 0.9%NACL 50ML 50 ML IV SCH (09:00)
[2021-09-04 11:20] VITALS: BP 153/83
[2021-09-04] MEDS: LINEZOLID 600 MG/ISO-OSM 300 ML IV SCH ×2 (12:10→23:15)
[2021-09-04] MEDS: CARVEDILOL 6.25 MG TABLET PO SCH ×2 (12:48→23:16)
[2021-09-04 15:35] VITALS: BP 170/60
[2021-09-04 15:40] VITALS: BP 153/80
[2021-09-04 20:00] VITALS: BP 154/82
[2021-09-04] MEDS: EPOETIN ALFA-EPBX (ESRD) 10,000 UNIT/ML VIAL SQ SCH (21:01)
[2021-09-05] VITALS: BP 143/73
[2021-09-05] MEDS ORDERED: 0.9% NACL 250ML 250 ML ONE ×2 (00:17→23:02)
[2021-09-05] MEDS: FUROSEMIDE 40MG VIAL IV SCH ×3 (00:26→23:13)
[2021-09-05] MEDS: DOXYCYCLINE 100MG+NS 250ML 250 ML IV SCH ×3 (00:32→23:12)
[2021-09-05 04:00] VITALS: BP 147/75
[2021-09-05 05:00] LABS: HEMATOCRIT 29.4 % (42-54); MEAN CORPUSCULAR HEMOGLOBIN 29.2 pg (27.0-33.0); MEAN CORPUSCULAR HGB CONC 29.9 g/dL (32.0-36.0); MEAN CORPUSCULAR VOLUME 97.7 fL (79-99); NUCLEATED RED BLOOD CELLS 0.2 % (0.0-0.19); PLATELET COUNT (AUTO) 191 K/uL (130-400); RED BLOOD CELL COUNT(AUTO) 3.01 MIL/uL (4.50-6.20); RED CELL DISTRIBUTION WIDTH 12.8 % (11.0-15.5); WHITE BLOOD COUNT (AUTO) 13.3 K/uL (4.8-10.8)
[2021-09-05 05:10] LABS: CREATININE 5.4 mg/dL (0.5-1.5)
[2021-09-05 05:41] LABS: % IRON SATURATION 14.4 % (30-44)
[2021-09-05 06:21] LABS: EOSINOPHILS % (MANUAL) 3 % (1-6); LYMPHOCYTES % (MANUAL) 16 % (22-44); MAN.DIFF COMMENT-IMPRESSION MANUAL DIFFERENTIAL; MONOCYTES % (MANUAL) 2 % (2-9); PLATELET MORPHOLOGY COMMENT ADEQUATE; SEGMENTED NEUTROPHILS % 79 % (40-70)
[2021-09-05] MEDS: INSULIN HUMULIN R 100 UNIT/ML 3ML SQ SCH ×4 (06:26→21:09)
[2021-09-05] MEDS: BUDESONIDE 0.5 MG/2 ML INH IH SCH ×2 (06:44→18:47)
[2021-09-05] MEDS: IPRATROPIUM/ALBUTEROL SULFATE 3 ML SOLUTION IH SCH ×4 (06:44→23:22)
[2021-09-05 07:40] VITALS: BP 156/75
[2021-09-05] MEDS: CEFEPIME HCL 2 GM VIAL IVP SCH (07:45)
[2021-09-05] MEDS: IRON SUCROSE COMPLEX 100 MG/5 ML VIAL IVP SCH (07:46)
[2021-09-05] MEDS: SODIUM BICARBONATE 650 MG TAB PO SCH ×3 (07:46→20:59)
[2021-09-05] MEDS: HEPARIN 5,000 UNIT VIAL SQ SCH ×3 (07:47→21:10)
[2021-09-05] MEDS: FAMOTIDINE 20MG VIAL IV SCH (07:48)
[2021-09-05 11:40] VITALS: BP 160/77
[2021-09-05] MEDS: LINEZOLID 600 MG/ISO-OSM 300 ML IV SCH ×2 (11:58→22:44)
[2021-09-05] MEDS: CARVEDILOL 6.25 MG TABLET PO SCH ×2 (11:58→22:44)
[2021-09-05 15:35] VITALS: BP 147/85
[2021-09-05 20:00] VITALS: BP 136/61
[2021-09-05] MEDS: SOLU-MEDROL 40MG VIAL IVP SCH (20:58)
[2021-09-06] VITALS (7 sets, daily range): BP systolic 112–165; BP diastolic 75–96
[2021-09-06 04:35] LABS: MEAN CORPUSCULAR HEMOGLOBIN 30.3 pg (27.0-33.0); MEAN CORPUSCULAR HGB CONC 31.8 g/dL (32.0-36.0); MEAN CORPUSCULAR VOLUME 95.1 fL (79-99); NUCLEATED RED BLOOD CELLS 0.2 % (0.0-0.19); PLATELET COUNT (AUTO) 214 K/uL (130-400); RED BLOOD CELL COUNT(AUTO) 3.47 MIL/uL (4.50-6.20); RED CELL DISTRIBUTION WIDTH 13.1 % (11.0-15.5); WHITE BLOOD COUNT (AUTO) 12.7 K/uL (4.8-10.8)
[2021-09-06 04:54] LABS: INR 1.07 (0.85-1.15); PROTHROMBIN TIME 11.6 SEC (9.6-11.6)
[2021-09-06 04:55] LABS: PARTIAL THROMBOPLASTIN TIME 34.4 SEC (26.3-35.5)
[2021-09-06 05:16] LABS: ALBUMIN 1.9 g/dL (3.5-5.0); BILIRUBIN,TOTAL 0.4 mg/dL (0.2-1.0); CREATININE 4.8 mg/dL (0.5-1.5); PHOSPHORUS 4.4 mg/dL (2.5-4.9); POTASSIUM 4.7 mmol/L (3.5-5.1); TOTAL PROTEIN, SERUM 6.7 g/dL (6.0-8.3)
[2021-09-06 05:31] LABS: BAND NEUTROPHILS % (MANUAL) 3 % (0-2); LYMPHOCYTES % (MANUAL) 8 % (22-44); MONOCYTES % (MANUAL) 2 % (2-9); SEGMENTED NEUTROPHILS % 87 % (40-70)
[2021-09-06 05:32] LABS: MAN.DIFF COMMENT-IMPRESSION MANUAL DIFFERENTIAL; PLATELET MORPHOLOGY COMMENT ADEQUATE
[2021-09-06] MEDS: INSULIN HUMULIN R 100 UNIT/ML 3ML SQ SCH ×4 (06:32→19:46)
[2021-09-06] MEDS: IPRATROPIUM/ALBUTEROL SULFATE 3 ML SOLUTION IH SCH ×4 (06:37→23:16)
[2021-09-06] MEDS: BUDESONIDE 0.5 MG/2 ML INH IH SCH ×2 (06:37→18:37)
[2021-09-06] MEDS: HEPARIN 5,000 UNIT VIAL SQ SCH ×4 (09:00→22:23)
[2021-09-06] MEDS: IRON SUCROSE COMPLEX 100 MG/5 ML VIAL IVP SCH (11:51)
[2021-09-06] MEDS: CEFEPIME HCL 2 GM VIAL IVP SCH (11:51)
[2021-09-06] MEDS: SODIUM BICARBONATE 650 MG TAB PO SCH ×3 (11:51→20:46)
[2021-09-06] MEDS: SOLU-MEDROL 40MG VIAL IVP SCH ×2 (11:51→20:46)
[2021-09-06] MEDS: LINEZOLID 600 MG/ISO-OSM 300 ML IV SCH (12:09)
[2021-09-06] MEDS: CARVEDILOL 6.25 MG TABLET PO SCH ×2 (12:09→20:47)
[2021-09-06] MEDS: FUROSEMIDE 40MG VIAL IV SCH (12:10)
[2021-09-06] MEDS: DOXYCYCLINE 100MG+NS 250ML 250 ML IV SCH (12:10)
[2021-09-06 15:20] LABS: HEMATOCRIT 32.5 % (42-54)
[2021-09-06 15:39] LABS: ALBUMIN 1.9 g/dL (3.5-5.0); CREATININE 4.8 mg/dL (0.5-1.5)
[2021-09-06] MEDS: INSULIN GLARGINE 100 UNITS/ML 10 ML VIAL SQ SCH (20:45)
[2021-09-06] MEDS: EPOETIN ALFA-EPBX (ESRD) 10,000 UNIT/ML VIAL SQ SCH (20:47)
[2021-09-07] MEDS: DOXYCYCLINE 100MG+NS 250ML 250 ML IV SCH ×2 (00:17→12:30)
[2021-09-07] MEDS: FUROSEMIDE 40MG VIAL IV SCH ×3 (00:17→23:41)
[2021-09-07] MEDS: LINEZOLID 600 MG/ISO-OSM 300 ML IV SCH ×3 (00:18→23:40)
[2021-09-07 03:17] VITALS: BP 161/100
[2021-09-07 05:47] LABS: BASOPHILS % (AUTO) 0.3 % (0.0-5.0); HEMATOCRIT 34.1 % (42-54); MEAN CORPUSCULAR HEMOGLOBIN 29.8 pg (27.0-33.0); MEAN CORPUSCULAR HGB CONC 31.1 g/dL (32.0-36.0); MEAN CORPUSCULAR VOLUME 95.8 fL (79-99); MONOCYTES % (AUTO) 1.3 % (3.0-13.0); NEUTROPHILS % (AUTO) 89.2 % (40.0-77.0); NUCLEATED RED BLOOD CELLS 0.2 % (0.0-0.19); PLATELET COUNT (AUTO) 251 K/uL (130-400); RED BLOOD CELL COUNT(AUTO) 3.56 MIL/uL (4.50-6.20); WHITE BLOOD COUNT (AUTO) 17.3 K/uL (4.8-10.8)
[2021-09-07 06:03] LABS: INR 1.11 (0.85-1.15)
[2021-09-07 06:04] LABS: PARTIAL THROMBOPLASTIN TIME 32.6 SEC (26.3-35.5)
[2021-09-07 06:17] LABS: BILIRUBIN,TOTAL 0.3 mg/dL (0.2-1.0); CREATININE 4.5 mg/dL (0.5-1.5); POTASSIUM 4.6 mmol/L (3.5-5.1); TOTAL PROTEIN, SERUM 6.4 g/dL (6.0-8.3)
[2021-09-07] MEDS: INSULIN HUMULIN R 100 UNIT/ML 3ML SQ SCH ×5 (06:20→20:49)
[2021-09-07] MEDS: BUDESONIDE 0.5 MG/2 ML INH IH SCH ×2 (06:49→18:52)
[2021-09-07] MEDS: IPRATROPIUM/ALBUTEROL SULFATE 3 ML SOLUTION IH SCH ×4 (06:49→23:00)
[2021-09-07 08:00] VITALS: BP 151/83
[2021-09-07] MEDS: SODIUM BICARBONATE 650 MG TAB PO SCH ×3 (08:38→20:47)
[2021-09-07] MEDS: SOLU-MEDROL 40MG VIAL IVP SCH ×2 (08:46→20:47)
[2021-09-07] MEDS: IRON SUCROSE COMPLEX 100 MG/5 ML VIAL IVP SCH (08:46)
[2021-09-07] MEDS: FAMOTIDINE 20MG VIAL IV SCH (08:46)
[2021-09-07] MEDS: CEFEPIME HCL 2 GM VIAL IVP SCH (08:46)
[2021-09-07 12:00] VITALS: BP 149/98
[2021-09-07 12:51] LABS: HEPATITIS B SURFACE ANTIGEN Non-Reactive (Negative)
[2021-09-07] MEDS: HEPARIN 5,000 UNIT VIAL SQ SCH ×2 (14:00→20:51)
[2021-09-07] MEDS: CARVEDILOL 6.25 MG TABLET PO SCH ×2 (14:31→23:47)
[2021-09-07 16:00] VITALS: BP 153/103
[2021-09-07 20:00] VITALS: BP 160/93
[2021-09-07] MEDS: INSULIN GLARGINE 100 UNITS/ML 10 ML VIAL SQ SCH (20:58)
[2021-09-07] MEDS ORDERED: 0.9% NACL 250ML 250 ML ONE (23:34)
[2021-09-08] VITALS (23 sets, daily range): BP systolic 145–230; BP diastolic 79–130
[2021-09-08] MEDS: DOXYCYCLINE 100MG+NS 250ML 250 ML IV SCH ×3 (01:47→20:30)
[2021-09-08 04:44] LABS: HEMATOCRIT 36.3 % (42-54); MEAN CORPUSCULAR HGB CONC 31.4 g/dL (32.0-36.0); MEAN CORPUSCULAR VOLUME 95.5 fL (79-99); NUCLEATED RED BLOOD CELLS 0.8 % (0.0-0.19); PLATELET COUNT (AUTO) 252 K/uL (130-400); RED CELL DISTRIBUTION WIDTH 13.1 % (11.0-15.5); WHITE BLOOD COUNT (AUTO) 18.3 K/uL (4.8-10.8)
[2021-09-08 05:10] LABS: BILIRUBIN,TOTAL 0.2 mg/dL (0.2-1.0); CREATININE 4.4 mg/dL (0.5-1.5); PHOSPHORUS 4.4 mg/dL (2.5-4.9); POTASSIUM 4.6 mmol/L (3.5-5.1); TOTAL PROTEIN, SERUM 6.5 g/dL (6.0-8.3)
[2021-09-08 05:16] LABS: LYMPHOCYTES % (MANUAL) 4 % (22-44); MAN.DIFF COMMENT-IMPRESSION MANUAL DIFFERENTIAL; MONOCYTES % (MANUAL) 5 % (2-9); PLATELET MORPHOLOGY COMMENT ADEQUATE; SEGMENTED NEUTROPHILS % 91 % (40-70)
[2021-09-08] MEDS: INSULIN HUMULIN R 100 UNIT/ML 3ML SQ SCH ×4 (06:32→21:52)
[2021-09-08] MEDS: IPRATROPIUM/ALBUTEROL SULFATE 3 ML SOLUTION IH SCH ×4 (06:41→23:26)
[2021-09-08] MEDS: BUDESONIDE 0.5 MG/2 ML INH IH SCH ×2 (06:42→18:34)
[2021-09-08] MEDS: SODIUM BICARBONATE 650 MG TAB PO SCH ×3 (09:00→21:47)
[2021-09-08] MEDS: CEFEPIME HCL 2 GM VIAL IVP SCH (10:37)
[2021-09-08] MEDS: HEPARIN 5,000 UNIT VIAL SQ SCH ×3 (10:38→21:00)
[2021-09-08] MEDS: SOLU-MEDROL 40MG VIAL IVP SCH (10:39)
[2021-09-08] MEDS: IRON SUCROSE COMPLEX 100 MG/5 ML VIAL IVP SCH (10:39)
[2021-09-08] MEDS ORDERED: HEPARIN 1,000 UNIT VIAL ONE (11:07)
[2021-09-08] MEDS ORDERED: LIDOCAINE HCL 1% MDV 50ML VIAL ONE (11:08)
[2021-09-08] MEDS ORDERED: SODIUM BICARB 50MEQ 50ML VIAL 50 ML ONE (11:08)
[2021-09-08] MEDS: CARVEDILOL 6.25 MG TABLET PO SCH (11:30)
[2021-09-08] MEDS: FUROSEMIDE 40MG VIAL IV SCH (12:00)
[2021-09-08] MEDS: LINEZOLID 600 MG/ISO-OSM 300 ML IV SCH (13:14)
[2021-09-08] MEDS ORDERED: CLONIDINE HCL 0.1 MG TABLET ONE (14:44)
[2021-09-08] MEDS ORDERED: CLONIDINE HCL 0.1 MG TABLET PO ONE (15:00)
[2021-09-08] MEDS: HEPARIN 5,000 UNIT VIAL IV PRN (16:41)
[2021-09-08] MEDS ORDERED: 0.9% NACL 250ML 250 ML ONE (18:09)
[2021-09-08] MEDS: EPOETIN ALFA-EPBX (ESRD) 10,000 UNIT/ML VIAL SQ SCH (21:48)
[2021-09-08] MEDS: INSULIN GLARGINE 100 UNITS/ML 10 ML VIAL SQ SCH (21:50)
[2021-09-09] VITALS (23 sets, daily range): BP systolic 127–179; BP diastolic 67–110
[2021-09-09] MEDS: CARVEDILOL 6.25 MG TABLET PO SCH ×3 (00:11→23:33)
[2021-09-09] MEDS: LINEZOLID 600 MG/ISO-OSM 300 ML IV SCH ×2 (00:11→15:18)
[2021-09-09] MEDS: FUROSEMIDE 40MG VIAL IV SCH ×2 (00:11→12:00)
[2021-09-09 04:57] LABS: HEMATOCRIT 35.3 % (42-54); MEAN CORPUSCULAR HEMOGLOBIN 30.1 pg (27.0-33.0); MEAN CORPUSCULAR HGB CONC 31.4 g/dL (32.0-36.0); MEAN CORPUSCULAR VOLUME 95.7 fL (79-99); NUCLEATED RED BLOOD CELLS 0.9 % (0.0-0.19); PLATELET COUNT (AUTO) 223 K/uL (130-400); RED BLOOD CELL COUNT(AUTO) 3.69 MIL/uL (4.50-6.20)
[2021-09-09 05:15] LABS: LYMPHOCYTES % (MANUAL) 11 % (22-44); MAN.DIFF COMMENT-IMPRESSION MANUAL DIFFERENTIAL; MONOCYTES % (MANUAL) 7 % (2-9); PLATELET MORPHOLOGY COMMENT ADEQUATE; SEGMENTED NEUTROPHILS % 82 % (40-70)
[2021-09-09 05:16] LABS: CREATININE 3.7 mg/dL (0.5-1.5); POTASSIUM 4.2 mmol/L (3.5-5.1)
[2021-09-09] MEDS: INSULIN HUMULIN R 100 UNIT/ML 3ML SQ SCH ×4 (06:22→20:46)
[2021-09-09] MEDS: IPRATROPIUM/ALBUTEROL SULFATE 3 ML SOLUTION IH SCH ×4 (07:04→23:55)
[2021-09-09] MEDS: BUDESONIDE 0.5 MG/2 ML INH IH SCH ×2 (07:04→18:35)
[2021-09-09] MEDS ORDERED: 0.9% NACL 250ML 250 ML ONE ×2 (07:30→20:22)
[2021-09-09] MEDS: FAMOTIDINE 20MG VIAL IV SCH (09:00)
[2021-09-09] MEDS: DOXYCYCLINE 100MG+NS 250ML 250 ML IV SCH ×3 (10:14→20:25)
[2021-09-09] MEDS: CEFEPIME HCL 2 GM VIAL IVP SCH (10:15)
[2021-09-09] MEDS: IRON SUCROSE COMPLEX 100 MG/5 ML VIAL IVP SCH (10:15)
[2021-09-09] MEDS: SODIUM BICARBONATE 650 MG TAB PO SCH ×3 (10:17→20:25)
[2021-09-09] MEDS: PREDNISONE 20 MG TABLET PO SCH (10:18)
[2021-09-09] MEDS: HEPARIN 5,000 UNIT VIAL SQ SCH ×2 (15:29→21:22)
[2021-09-09] MEDS: INSULIN GLARGINE 100 UNITS/ML 10 ML VIAL SQ SCH (20:48)
[2021-09-09] MEDS: HEPARIN 5,000 UNIT VIAL IV PRN (22:48)
[2021-09-10] MEDS: LINEZOLID 600 MG/ISO-OSM 300 ML IV SCH ×3 (00:37→23:10)
[2021-09-10] MEDS: FUROSEMIDE 40MG VIAL IV SCH ×2 (00:37→12:07)
[2021-09-10 04:00] VITALS: BP 131/62
[2021-09-10 05:17] LABS: BASOPHILS % (AUTO) 0.2 % (0.0-5.0); EOSINOPHILS % (AUTO) 0.1 % (0.0-8.0); HEMATOCRIT 39.4 % (42-54); LYMPHOCYTES % (AUTO) 10.7 % (21.0-51.0); MEAN CORPUSCULAR HEMOGLOBIN 29.7 pg (27.0-33.0); MEAN CORPUSCULAR HGB CONC 31.2 g/dL (32.0-36.0); MEAN CORPUSCULAR VOLUME 95.2 fL (79-99); MONOCYTES % (AUTO) 8.1 % (3.0-13.0); NEUTROPHILS % (AUTO) 77.3 % (40.0-77.0); NUCLEATED RED BLOOD CELLS 1.3 % (0.0-0.19); PLATELET COUNT (AUTO) 221 K/uL (130-400); RED BLOOD CELL COUNT(AUTO) 4.14 MIL/uL (4.50-6.20); WHITE BLOOD COUNT (AUTO) 18.9 K/uL (4.8-10.8)
[2021-09-10 05:27] LABS: ALBUMIN 2.1 g/dL (3.5-5.0); BILIRUBIN,TOTAL 0.2 mg/dL (0.2-1.0); CREATININE 3.4 mg/dL (0.5-1.5); POTASSIUM 4.1 mmol/L (3.5-5.1); TOTAL PROTEIN, SERUM 6.2 g/dL (6.0-8.3)
[2021-09-10 05:39] LABS: B-TYPE NATRIURETIC PEPTIDE 633 pg/mL (0-100)
[2021-09-10] MEDS: INSULIN HUMULIN R 100 UNIT/ML 3ML SQ SCH ×4 (06:49→21:39)
[2021-09-10] MEDS: IPRATROPIUM/ALBUTEROL SULFATE 3 ML SOLUTION IH SCH ×3 (06:55→18:36)
[2021-09-10] MEDS: BUDESONIDE 0.5 MG/2 ML INH IH SCH ×2 (06:55→18:36)
[2021-09-10 08:00] VITALS: BP 122/52
[2021-09-10] MEDS: IRON SUCROSE COMPLEX 100 MG/5 ML VIAL IVP SCH (10:29)
[2021-09-10] MEDS: DOXYCYCLINE 100MG+NS 250ML 250 ML IV SCH ×2 (10:29→21:33)
[2021-09-10] MEDS: CEFEPIME HCL 2 GM VIAL IVP SCH (10:29)
[2021-09-10] MEDS: PREDNISONE 20 MG TABLET PO SCH (10:30)
[2021-09-10] MEDS: SODIUM BICARBONATE 650 MG TAB PO SCH ×3 (10:31→21:32)
[2021-09-10] MEDS: HEPARIN 5,000 UNIT VIAL SQ SCH ×3 (10:55→21:36)
[2021-09-10 12:00] VITALS: BP 151/61
[2021-09-10] MEDS: CARVEDILOL 6.25 MG TABLET PO SCH ×2 (12:07→23:11)
[2021-09-10 16:00] VITALS: BP 142/58
[2021-09-10 20:00] VITALS: BP 162/57
[2021-09-10] MEDS: INSULIN GLARGINE 100 UNITS/ML 10 ML VIAL SQ SCH (21:38)
[2021-09-11] VITALS (22 sets, daily range): BP systolic 146–183; BP diastolic 72–116
[2021-09-11] MEDS: IPRATROPIUM/ALBUTEROL SULFATE 3 ML SOLUTION IH SCH ×5 (00:36→23:44)
[2021-09-11] MEDS: FUROSEMIDE 40MG VIAL IV SCH ×3 (00:47→23:27)
[2021-09-11] MEDS: INSULIN HUMULIN R 100 UNIT/ML 3ML SQ SCH ×4 (06:08→21:15)
[2021-09-11] MEDS: BUDESONIDE 0.5 MG/2 ML INH IH SCH ×2 (06:36→18:28)
[2021-09-11] MEDS: DOXYCYCLINE 100MG+NS 250ML 250 ML IV SCH ×2 (08:30→21:08)
[2021-09-11] MEDS: HEPARIN 5,000 UNIT VIAL SQ SCH ×3 (09:00→21:16)
[2021-09-11] MEDS: INSULIN GLARGINE 100 UNITS/ML 10 ML VIAL SQ SCH ×2 (09:00→21:15)
[2021-09-11] MEDS: FAMOTIDINE 20MG VIAL IV SCH (09:00)
[2021-09-11] MEDS: SODIUM BICARBONATE 650 MG TAB PO SCH ×3 (09:00→21:08)
[2021-09-11] MEDS: CARVEDILOL 6.25 MG TABLET PO SCH ×2 (11:30→23:27)
[2021-09-11] MEDS: HEPARIN 5,000 UNIT VIAL IV PRN (13:51)
[2021-09-11] MEDS: Vitamin B Complex/Vit C/Folic Acid PO SCH (14:17)
[2021-09-11] MEDS: IRON SUCROSE COMPLEX 100 MG/5 ML VIAL IVP SCH (14:17)
[2021-09-11] MEDS: PREDNISONE 20 MG TABLET PO SCH (14:17)
[2021-09-11] MEDS: LINEZOLID 600 MG/ISO-OSM 300 ML IV SCH ×2 (14:43→23:26)
[2021-09-11] MEDS: CEFEPIME HCL 2 GM VIAL IVP SCH (14:44)
[2021-09-11] MEDS: EPOETIN ALFA-EPBX (ESRD) 10,000 UNIT/ML VIAL SQ SCH (21:09)
[2021-09-12] VITALS: BP 138/72
[2021-09-12 04:00] VITALS: BP 156/98
[2021-09-12] MEDS: BUDESONIDE 0.5 MG/2 ML INH IH SCH ×2 (06:13→18:34)
[2021-09-12] MEDS: IPRATROPIUM/ALBUTEROL SULFATE 3 ML SOLUTION IH SCH ×4 (06:13→23:47)
[2021-09-12 06:14] LABS: ALBUMIN 2.1 g/dL (3.5-5.0); BILIRUBIN,TOTAL 0.4 mg/dL (0.2-1.0); CREATININE 3.7 mg/dL (0.5-1.5); PHOSPHORUS 4.7 mg/dL (2.5-4.9); POTASSIUM 3.9 mmol/L (3.5-5.1); TOTAL PROTEIN, SERUM 5.9 g/dL (6.0-8.3)
[2021-09-12] MEDS: INSULIN HUMULIN R 100 UNIT/ML 3ML SQ SCH ×4 (06:37→21:52)
[2021-09-12 06:43] LABS: BASOPHILS % (AUTO) 0.1 % (0.0-5.0); HEMATOCRIT 36.4 % (42-54); MEAN CORPUSCULAR HEMOGLOBIN 30.1 pg (27.0-33.0); MEAN CORPUSCULAR HGB CONC 32.7 g/dL (32.0-36.0); MEAN CORPUSCULAR VOLUME 91.9 fL (79-99); MONOCYTES % (AUTO) 5.9 % (3.0-13.0); NEUTROPHILS % (AUTO) 78.7 % (40.0-77.0); NUCLEATED RED BLOOD CELLS 0.6 % (0.0-0.19); PLATELET COUNT (AUTO) 159 K/uL (130-400); RED BLOOD CELL COUNT(AUTO) 3.96 MIL/uL (4.50-6.20); RED CELL DISTRIBUTION WIDTH 12.7 % (11.0-15.5); WHITE BLOOD COUNT (AUTO) 15.7 K/uL (4.8-10.8)
[2021-09-12 07:30] VITALS: BP 135/88
[2021-09-12] MEDS: Vitamin B Complex/Vit C/Folic Acid PO SCH (09:14)
[2021-09-12] MEDS: DOXYCYCLINE 100MG+NS 250ML 250 ML IV SCH ×2 (09:14→21:47)
[2021-09-12] MEDS: CEFEPIME HCL 2 GM VIAL IVP SCH (09:14)
[2021-09-12] MEDS: SODIUM BICARBONATE 650 MG TAB PO SCH ×3 (09:15→21:47)
[2021-09-12] MEDS: IRON SUCROSE COMPLEX 100 MG/5 ML VIAL IVP SCH (09:15)
[2021-09-12] MEDS: PREDNISONE 20 MG TABLET PO SCH (09:15)
[2021-09-12] MEDS: HEPARIN 5,000 UNIT VIAL SQ SCH ×3 (09:23→21:52)
[2021-09-12] MEDS ORDERED: 0.9% NACL 250ML 250 ML ONE (09:30)
[2021-09-12] MEDS: INSULIN GLARGINE 100 UNITS/ML 10 ML VIAL SQ SCH ×2 (09:34→21:52)
[2021-09-12 12:00] VITALS: BP 164/96
[2021-09-12] MEDS: CARVEDILOL 6.25 MG TABLET PO SCH ×2 (12:40→21:48)
[2021-09-12] MEDS: LINEZOLID 600 MG/ISO-OSM 300 ML IV SCH (12:42)
[2021-09-12] MEDS: FUROSEMIDE 40MG VIAL IV SCH (12:42)
[2021-09-12 16:00] VITALS: BP 167/94
[2021-09-12 20:00] VITALS: BP 181/97
[2021-09-13] VITALS (29 sets, daily range): BP systolic 98–210; BP diastolic 69–118
[2021-09-13] MEDS: LINEZOLID 600 MG/ISO-OSM 300 ML IV SCH ×3 (00:18→23:35)
[2021-09-13] MEDS: FUROSEMIDE 40MG VIAL IV SCH ×2 (00:18→12:43)
[2021-09-13 05:33] LABS: BASOPHILS % (AUTO) 0.1 % (0.0-5.0); EOSINOPHILS % (AUTO) 0.5 % (0.0-8.0); HEMATOCRIT 35.7 % (42-54); LYMPHOCYTES % (AUTO) 20.7 % (21.0-51.0); MEAN CORPUSCULAR HEMOGLOBIN 29.6 pg (27.0-33.0); MEAN CORPUSCULAR HGB CONC 32.2 g/dL (32.0-36.0); MONOCYTES % (AUTO) 7.9 % (3.0-13.0); NEUTROPHILS % (AUTO) 68.4 % (40.0-77.0); NUCLEATED RED BLOOD CELLS 0.9 % (0.0-0.19); PLATELET COUNT (AUTO) 153 K/uL (130-400); RED BLOOD CELL COUNT(AUTO) 3.88 MIL/uL (4.50-6.20); RED CELL DISTRIBUTION WIDTH 12.9 % (11.0-15.5)
[2021-09-13 05:51] LABS: PHOSPHORUS 4.9 mg/dL (2.5-4.9); POTASSIUM 3.2 mmol/L (3.5-5.1)
[2021-09-13] MEDS: INSULIN HUMULIN R 100 UNIT/ML 3ML SQ SCH ×3 (06:26→22:10)
[2021-09-13] MEDS: IPRATROPIUM/ALBUTEROL SULFATE 3 ML SOLUTION IH SCH ×3 (06:54→18:00)
[2021-09-13] MEDS: BUDESONIDE 0.5 MG/2 ML INH IH SCH ×2 (06:54→18:00)
[2021-09-13] MEDS: FAMOTIDINE 20MG VIAL IV SCH (09:00)
[2021-09-13] MEDS ORDERED: 0.9% NACL 250ML 250 ML ONE ×2 (09:12→21:40)
[2021-09-13] MEDS: DOXYCYCLINE 100MG+NS 250ML 250 ML IV SCH ×2 (09:16→22:03)
[2021-09-13] MEDS: CEFEPIME HCL 2 GM VIAL IVP SCH (09:16)
[2021-09-13] MEDS: IRON SUCROSE COMPLEX 100 MG/5 ML VIAL IVP SCH (09:16)
[2021-09-13] MEDS: SODIUM BICARBONATE 650 MG TAB PO SCH ×3 (09:17→22:10)
[2021-09-13] MEDS: Vitamin B Complex/Vit C/Folic Acid PO SCH (09:17)
[2021-09-13] MEDS: PREDNISONE 20 MG TABLET PO SCH (09:17)
[2021-09-13] MEDS: INSULIN GLARGINE 100 UNITS/ML 10 ML VIAL SQ SCH ×2 (09:47→22:08)
[2021-09-13] MEDS: HEPARIN 5,000 UNIT VIAL SQ SCH ×3 (09:47→21:00)
[2021-09-13] MEDS: CARVEDILOL 6.25 MG TABLET PO SCH ×2 (12:42→23:35)
[2021-09-13] MEDS ORDERED: EPHEDRINE SULFATE 50 MG/ML AMPULE ONE (17:05)
[2021-09-13] MEDS ORDERED: LIDOCAINE PF 100MG/5ML (2%) SYRINGE 5ML ONE (17:05)
[2021-09-13] MEDS ORDERED: KETAMINE 50MG/ML SYRINGE 50 MG/ML DISP.SYRIN IV ONE (17:05)
[2021-09-13] MEDS ORDERED: MIDAZOLAM HCL 1 MG/ML 2ML VIAL ONE (17:09)
[2021-09-13] MEDS ORDERED: PROPOFOL 10 MG/ML 20ML VIAL IV ONE (17:14)
[2021-09-13] MEDS ORDERED: HEPARIN 10,000 UNIT/10ML (1,000 UNIT/ML) VIAL ONE ×2 (17:44→18:01)
[2021-09-13] MEDS ORDERED: PROTAMINE SULFATE 10 MG/ML 5 ML VIAL ONE (18:17)
[2021-09-13] MEDS ORDERED: LIDOCAINE HCL 1% MDV 50ML VIAL ONE (18:21)
[2021-09-13] MEDS ORDERED: BUPIVACAINE/PF 0.5% 30ML VIAL ONE (18:21)
[2021-09-13] MEDS ORDERED: LABETALOL 20MG VIAL IV ONE (18:50)
[2021-09-13] MEDS ORDERED: HYDRALAZINE 20MG/ML VIAL ONE (19:06)
[2021-09-13] MEDS: EPOETIN ALFA-EPBX (ESRD) 10,000 UNIT/ML VIAL SQ SCH (21:00)
[2021-09-14] VITALS (21 sets, daily range): BP systolic 101–175; BP diastolic 60–115
[2021-09-14] MEDS: IPRATROPIUM/ALBUTEROL SULFATE 3 ML SOLUTION IH SCH ×5 (01:07→23:44)
[2021-09-14 04:36] LABS: BASOPHILS % (AUTO) 0.1 % (0.0-5.0); EOSINOPHILS % (AUTO) 0.1 % (0.0-8.0); HEMATOCRIT 39.7 % (42-54); LYMPHOCYTES % (AUTO) 15.6 % (21.0-51.0); MEAN CORPUSCULAR HEMOGLOBIN 29.8 pg (27.0-33.0); MEAN CORPUSCULAR HGB CONC 32.2 g/dL (32.0-36.0); MEAN CORPUSCULAR VOLUME 92.5 fL (79-99); MONOCYTES % (AUTO) 6.3 % (3.0-13.0); NUCLEATED RED BLOOD CELLS 0.9 % (0.0-0.19); PLATELET COUNT (AUTO) 119 K/uL (130-400); RED BLOOD CELL COUNT(AUTO) 4.29 MIL/uL (4.50-6.20); WHITE BLOOD COUNT (AUTO) 16.1 K/uL (4.8-10.8)
[2021-09-14 04:53] LABS: ALBUMIN 2.1 g/dL (3.5-5.0); BILIRUBIN,TOTAL 0.5 mg/dL (0.2-1.0); CREATININE 3.9 mg/dL (0.5-1.5); PHOSPHORUS 5.4 mg/dL (2.5-4.9); POTASSIUM 3.6 mmol/L (3.5-5.1); TOTAL PROTEIN, SERUM 5.9 g/dL (6.0-8.3)
[2021-09-14] MEDS: BUDESONIDE 0.5 MG/2 ML INH IH SCH ×2 (06:31→19:02)
[2021-09-14] MEDS: INSULIN HUMULIN R 100 UNIT/ML 3ML SQ SCH ×3 (06:35→23:51)
[2021-09-14] MEDS: Vitamin B Complex/Vit C/Folic Acid PO SCH (08:54)
[2021-09-14] MEDS: CEFEPIME HCL 2 GM VIAL IVP SCH (08:54)
[2021-09-14] MEDS: DOXYCYCLINE 100MG+NS 250ML 250 ML IV SCH ×2 (08:54→23:38)
[2021-09-14] MEDS: IRON SUCROSE COMPLEX 100 MG/5 ML VIAL IVP SCH (08:55)
[2021-09-14] MEDS: PREDNISONE 20 MG TABLET PO SCH (08:55)
[2021-09-14] MEDS: SODIUM BICARBONATE 650 MG TAB PO SCH ×3 (08:58→23:38)
[2021-09-14] MEDS: HEPARIN 5,000 UNIT VIAL SQ SCH ×3 (09:06→21:00)
[2021-09-14] MEDS: INSULIN GLARGINE 100 UNITS/ML 10 ML VIAL SQ SCH ×2 (09:06→23:50)
[2021-09-14] MEDS: CARVEDILOL 6.25 MG TABLET PO SCH (11:30)
[2021-09-14 11:55] LABS: INR 1.05 (0.85-1.15); PROTHROMBIN TIME 11.4 SEC (9.6-11.6)
[2021-09-14 11:57] LABS: PARTIAL THROMBOPLASTIN TIME 27.8 SEC (26.3-35.5)
[2021-09-14] MEDS: LINEZOLID 600 MG/ISO-OSM 300 ML IV SCH ×2 (13:35→23:38)
[2021-09-14] MEDS ORDERED: IOHEXOL-350 50ML VIAL IV ONE (15:24)
[2021-09-14] MEDS ORDERED: HEPARIN 1,000 UNIT VIAL ONE (15:24)
[2021-09-14] MEDS ORDERED: LIDOCAINE HCL 1% MDV 50ML VIAL ONE (15:24)
[2021-09-14] MEDS ORDERED: 0.9% NACL 250ML 250 ML ONE (23:28)
[2021-09-15] VITALS (19 sets, daily range): BP systolic 118–206; BP diastolic 68–132
[2021-09-15] MEDS: CARVEDILOL 6.25 MG TABLET PO SCH ×3 (00:01→23:30)
[2021-09-15] MEDS: INSULIN HUMULIN R 100 UNIT/ML 3ML SQ SCH ×4 (05:54→21:00)
[2021-09-15] MEDS: IPRATROPIUM/ALBUTEROL SULFATE 3 ML SOLUTION IH SCH ×4 (06:38→23:12)
[2021-09-15] MEDS: BUDESONIDE 0.5 MG/2 ML INH IH SCH ×2 (06:38→18:47)
[2021-09-15] MEDS: DOXYCYCLINE 100MG+NS 250ML 250 ML IV SCH (08:30)
[2021-09-15] MEDS: CEFEPIME HCL 2 GM VIAL IVP SCH (08:30)
[2021-09-15] MEDS: FAMOTIDINE 20MG VIAL IV SCH (09:00)
[2021-09-15] MEDS: PREDNISONE 20 MG TABLET PO SCH ×2 (11:02→11:06)
[2021-09-15] MEDS: Vitamin B Complex/Vit C/Folic Acid PO SCH (11:02)
[2021-09-15] MEDS: IRON SUCROSE COMPLEX 100 MG/5 ML VIAL IVP SCH ×2 (11:03→11:05)
[2021-09-15] MEDS: LINEZOLID 600 MG/ISO-OSM 300 ML IV SCH (11:03)
[2021-09-15] MEDS: SODIUM BICARBONATE 650 MG TAB PO SCH ×3 (12:15→21:34)
[2021-09-15] MEDS: HEPARIN 5,000 UNIT VIAL SQ SCH ×3 (12:17→21:37)
[2021-09-15] MEDS: INSULIN GLARGINE 100 UNITS/ML 10 ML VIAL SQ SCH ×2 (12:22→21:38)
[2021-09-15] MEDS: DOXYCYCLINE HYCLATE 100 MG TABLET PO SCH ×2 (18:31→21:34)
[2021-09-15] MEDS: ZYVOX 600 MG TAB PO SCH ×2 (18:31→21:34)
[2021-09-15] MEDS: NIFEDIPINE 10 MG CAP PO SCH (21:34)
[2021-09-15] MEDS: EPOETIN ALFA-EPBX (ESRD) 10,000 UNIT/ML VIAL SQ SCH (21:38)
[2021-09-16] VITALS: BP 107/69
[2021-09-16 04:35] VITALS: BP 116/74
[2021-09-16 06:02] LABS: BASOPHILS % (AUTO) 0.1 % (0.0-5.0); EOSINOPHILS % (AUTO) 0.1 % (0.0-8.0); HEMATOCRIT 35.9 % (42-54); LYMPHOCYTES % (AUTO) 17.2 % (21.0-51.0); MEAN CORPUSCULAR HEMOGLOBIN 30.2 pg (27.0-33.0); MEAN CORPUSCULAR HGB CONC 32.6 g/dL (32.0-36.0); MEAN CORPUSCULAR VOLUME 92.5 fL (79-99); MONOCYTES % (AUTO) 8.3 % (3.0-13.0); NEUTROPHILS % (AUTO) 73.5 % (40.0-77.0); NUCLEATED RED BLOOD CELLS 0.4 % (0.0-0.19); PLATELET COUNT (AUTO) 121 K/uL (130-400); RED BLOOD CELL COUNT(AUTO) 3.88 MIL/uL (4.50-6.20); RED CELL DISTRIBUTION WIDTH 13.1 % (11.0-15.5)
[2021-09-16] MEDS: INSULIN HUMULIN R 100 UNIT/ML 3ML SQ SCH ×4 (06:20→20:39)
[2021-09-16 06:23] LABS: ALBUMIN 2.1 g/dL (3.5-5.0); BILIRUBIN,TOTAL 0.5 mg/dL (0.2-1.0); CREATININE 3.7 mg/dL (0.5-1.5); POTASSIUM 3.5 mmol/L (3.5-5.1); TOTAL PROTEIN, SERUM 5.4 g/dL (6.0-8.3)
[2021-09-16] MEDS: IPRATROPIUM/ALBUTEROL SULFATE 3 ML SOLUTION IH SCH ×4 (06:37→23:35)
[2021-09-16] MEDS: BUDESONIDE 0.5 MG/2 ML INH IH SCH ×2 (06:37→18:56)
[2021-09-16 08:00] VITALS: BP 136/64
[2021-09-16] MEDS: NIFEDIPINE 10 MG CAP PO SCH ×4 (09:00→18:35)
[2021-09-16] MEDS: ZYVOX 600 MG TAB PO SCH (11:03)
[2021-09-16] MEDS: Vitamin B Complex/Vit C/Folic Acid PO SCH (11:03)
[2021-09-16] MEDS: SODIUM BICARBONATE 650 MG TAB PO SCH ×3 (11:03→20:04)
[2021-09-16] MEDS: DOXYCYCLINE HYCLATE 100 MG TABLET PO SCH (11:05)
[2021-09-16] MEDS: INSULIN GLARGINE 100 UNITS/ML 10 ML VIAL SQ SCH ×2 (11:06→20:06)
[2021-09-16] MEDS: HEPARIN 5,000 UNIT VIAL SQ SCH ×3 (11:08→20:05)
[2021-09-16] MEDS: CARVEDILOL 6.25 MG TABLET PO SCH ×2 (11:30→20:04)
[2021-09-16 12:00] VITALS: BP 119/49
[2021-09-16 16:00] VITALS: BP 144/101
[2021-09-16 20:00] VITALS: BP 141/80
[2021-09-17] VITALS: BP 126/77
[2021-09-17 04:00] VITALS: BP 162/96
[2021-09-17] MEDS: INSULIN HUMULIN R 100 UNIT/ML 3ML SQ SCH ×4 (05:20→20:12)
[2021-09-17] MEDS: IPRATROPIUM/ALBUTEROL SULFATE 3 ML SOLUTION IH SCH ×3 (06:23→18:04)
[2021-09-17] MEDS: BUDESONIDE 0.5 MG/2 ML INH IH SCH ×2 (06:23→18:04)
[2021-09-17 07:48] VITALS: BP 131/56
[2021-09-17] MEDS: INSULIN GLARGINE 100 UNITS/ML 10 ML VIAL SQ SCH ×2 (09:00→20:07)
[2021-09-17] MEDS: SODIUM BICARBONATE 650 MG TAB PO SCH ×3 (09:19→20:04)
[2021-09-17] MEDS: Vitamin B Complex/Vit C/Folic Acid PO SCH (09:19)
[2021-09-17] MEDS: PREDNISONE 20 MG TABLET PO SCH (09:20)
[2021-09-17] MEDS: NIFEDIPINE 10 MG CAP PO SCH ×3 (09:20→20:04)
[2021-09-17] MEDS: HEPARIN 5,000 UNIT VIAL SQ SCH ×3 (09:28→20:06)
[2021-09-17 09:36] LABS: BASOPHILS % (AUTO) 0.1 % (0.0-5.0); EOSINOPHILS % (AUTO) 0.2 % (0.0-8.0); HEMATOCRIT 37.3 % (42-54); LYMPHOCYTES % (AUTO) 20.6 % (21.0-51.0); MEAN CORPUSCULAR HEMOGLOBIN 29.9 pg (27.0-33.0); MEAN CORPUSCULAR HGB CONC 32.4 g/dL (32.0-36.0); MEAN CORPUSCULAR VOLUME 92.1 fL (79-99); MONOCYTES % (AUTO) 9.2 % (3.0-13.0); NEUTROPHILS % (AUTO) 69.2 % (40.0-77.0); NUCLEATED RED BLOOD CELLS 0.7 % (0.0-0.19); PLATELET COUNT (AUTO) 114 K/uL (130-400); RED BLOOD CELL COUNT(AUTO) 4.05 MIL/uL (4.50-6.20); WHITE BLOOD COUNT (AUTO) 14.3 K/uL (4.8-10.8)
[2021-09-17 11:45] VITALS: BP 119/56
[2021-09-17] MEDS: CARVEDILOL 6.25 MG TABLET PO SCH ×2 (14:07→20:04)
[2021-09-17 16:00] VITALS: BP 143/89
[2021-09-17 20:00] VITALS: BP 132/73
[2021-09-18] VITALS (18 sets, daily range): BP systolic 96–182; BP diastolic 41–112
[2021-09-18 09:00] LABS: MEAN CORPUSCULAR HEMOGLOBIN 29.9 pg (27.0-33.0); MEAN CORPUSCULAR HGB CONC 32.4 g/dL (32.0-36.0); MEAN CORPUSCULAR VOLUME 92.4 fL (79-99); NUCLEATED RED BLOOD CELLS 0.4 % (0.0-0.19); PLATELET COUNT (AUTO) 114 K/uL (130-400); RED BLOOD CELL COUNT(AUTO) 3.68 MIL/uL (4.50-6.20); RED CELL DISTRIBUTION WIDTH 13.1 % (11.0-15.5); WHITE BLOOD COUNT (AUTO) 13.9 K/uL (4.8-10.8)
[2021-09-18] MEDS: INSULIN GLARGINE 100 UNITS/ML 10 ML VIAL SQ SCH ×2 (09:00→21:29)
[2021-09-18 10:19] LABS: BASOPHILS % (AUTO) 0.1 % (0.0-5.0); EOSINOPHILS % (AUTO) 0.8 % (0.0-8.0); LYMPHOCYTES % (AUTO) 24.5 % (21.0-51.0); MONOCYTES % (AUTO) 10.1 % (3.0-13.0); NEUTROPHILS % (AUTO) 63.5 % (40.0-77.0)
[2021-09-18] MEDS: Vitamin B Complex/Vit C/Folic Acid PO SCH (10:55)
[2021-09-18] MEDS: SODIUM BICARBONATE 650 MG TAB PO SCH ×3 (10:56→21:31)
[2021-09-18] MEDS: PREDNISONE 20 MG TABLET PO SCH (10:56)
[2021-09-18] MEDS: HEPARIN 5,000 UNIT VIAL SQ SCH ×3 (10:59→21:00)
[2021-09-18] MEDS: IPRATROPIUM/ALBUTEROL SULFATE 3 ML SOLUTION IH SCH ×2 (11:28→18:19)
[2021-09-18] MEDS: INSULIN HUMULIN R 100 UNIT/ML 3ML SQ SCH ×3 (11:30→21:00)
[2021-09-18 11:55] LABS: CREATININE 4.8 mg/dL (0.5-1.5); PHOSPHORUS 6.4 mg/dL (2.5-4.9); POTASSIUM 3.2 mmol/L (3.5-5.1)
[2021-09-18] MEDS ORDERED: FAMO20TA8 PO (14:33)
[2021-09-18] MEDS ORDERED: INSLAN SQ (14:33)
[2021-09-18] MEDS ORDERED: NIFE-39 PO (14:33)
[2021-09-18] MEDS ORDERED: BUDE0.5A8 IH (14:33)
[2021-09-18] MEDS ORDERED: PRED20TA3 PO (14:33)
[2021-09-18] MEDS ORDERED: CARV6.25 PO (14:33)
[2021-09-18] MEDS: BUDESONIDE 0.5 MG/2 ML INH IH SCH (18:41)
[2021-09-18] MEDS: HEPARIN 5,000 UNIT VIAL IV PRN (19:52)
[2021-09-18] MEDS ORDERED: FAMOTIDINE 20MG TAB PO SCH (21:00)
[2021-09-18] MEDS: NIFEDIPINE 10 MG CAP PO SCH (21:34)
[2021-09-18] MEDS: EPOETIN ALFA-EPBX (ESRD) 10,000 UNIT/ML VIAL SQ SCH (21:34)
== END 2021-09-18 21:50 | disposition home or self-care (01) | DRG 673 ==
LOC: EDH 22:16 → EDHIP 22:17 → 3AH 09-03 03:02 → 3CH 09-04 15:08
PROVIDERS: ADMIT Hospitalist; ATTEND Hospitalist
PROC: 05HY33Z Insertion of Infusion Device into Upper Vein, Percutaneous Approach (ICD-10-PCS; 2021-09-07)
PROC: 5A1D70Z Performance of Urinary Filtration, Intermittent, Less than 6 Hours Per Day (ICD-10-PCS; 2021-09-08)
PROC: 5A1D70Z Performance of Urinary Filtration, Intermittent, Less than 6 Hours Per Day (ICD-10-PCS; 2021-09-09)
PROC: 5A1D70Z Performance of Urinary Filtration, Intermittent, Less than 6 Hours Per Day (ICD-10-PCS; 2021-09-11)
PROC: 03180ZD Bypass Left Brachial Artery to Upper Arm Vein, Open Approach (ICD-10-PCS; principal; 2021-09-13 17:08)
PROC: 0JH63XZ Insertion of Tunneled Vascular Access Device into Chest Subcutaneous Tissue and Fascia, Percutaneous Approach (ICD-10-PCS; 2021-09-14)
PROC: 02H633Z Insertion of Infusion Device into Right Atrium, Percutaneous Approach (ICD-10-PCS; 2021-09-14)
PROC: B5181ZA Fluoroscopy of Superior Vena Cava using Low Osmolar Contrast, Guidance (ICD-10-PCS; 2021-09-14)
PROC: 5A1D70Z Performance of Urinary Filtration, Intermittent, Less than 6 Hours Per Day (ICD-10-PCS; 2021-09-14)
PROC: 5A1D70Z Performance of Urinary Filtration, Intermittent, Less than 6 Hours Per Day (ICD-10-PCS; 2021-09-15)
PROC: 5A1D70Z Performance of Urinary Filtration, Intermittent, Less than 6 Hours Per Day (ICD-10-PCS; 2021-09-18)
DX: N17.9 Acute kidney failure, unspecified (principal); J15.6 Pneumonia due to other Gram-negative bacteria; J96.01 Acute respiratory failure with hypoxia; J15.7 Pneumonia due to Mycoplasma pneumoniae; E43 Unspecified severe protein-calorie malnutrition; I50.30 Unspecified diastolic (congestive) heart failure; Z68.42 Body mass index [BMI] 45.0-49.9, adult; I13.2 Hypertensive heart and chronic kidney disease with heart failure and with stage 5 chronic kidney disease, or end stage renal disease; N18.6 End stage renal disease; E11.65 Type 2 diabetes mellitus with hyperglycemia; E87.70 Fluid overload, unspecified; E11.22 Type 2 diabetes mellitus with diabetic chronic kidney disease; Z87.01 Personal history of pneumonia (recurrent); E66.01 Morbid (severe) obesity due to excess calories; Z99.2 Dependence on renal dialysis; Z20.822 Contact with and (suspected) exposure to COVID-19; E78.5 Hyperlipidemia, unspecified; E78.00 Pure hypercholesterolemia, unspecified; D63.1 Anemia in chronic kidney disease; G47.33 Obstructive sleep apnea (adult) (pediatric)
CPT/HCPCS: 36415; 36556; 36581; 36600; 71045; 71250; 76770; 77001; 78582; 80048; 80053; 80061; 81001; 82040; 82435; 82565; 82570; 82728; 82803; 82947; 82948; 83036; 83540; 83550; 83605; 83735; 83880; 84100; 84132; 84145; 84295; 84300; 84443; 84520; 84540; 84550; 85014; 85018; 85025; 85378; 85610; 85651; 85730; 86140; 86701; 86704; 86706; 86738; 86850; 86900; 86901; 87040; 87071; 87205; 87340; 87390; 87449; 87635; 87804; 90935; 93005; 93306; 93356; 93970; 94640; 94664; 94760; A9540; A9558; C1750; C1752; C9803; G0378; J0360; J0456; J0692; J0696; J1642; J1644; J1756; J1815; J1940; J2001; J2020; J2250; J2704; J2720; J2920; J3490; J7030; J7050; Q9967

== ENCOUNTER → 2022-05-11 | Outpatient (CLI) | payer MEDICARE ==
[~2022-05-11] VITALS: Ht 162.6 cm; Wt 107.1 kg
[~2022-05-11] MED LIST changes: +AEC81 PO; -ALBUHFA IH; +AMOX1TAB15 PO; +AMOX500C2 PO; +AZIT250T9 PO; -BENZ-70 PO; +BUDE0.5A3 IH; -CARV12.511 PO; -CARV12.580 PO; +CARV6.25 PO; +CEFAZOLIN SODIUM 2 GM VIAL IVPB PRN; +FAMO20TA8 PO; +FOLI1TAB85 PO; -FURO20TA6 PO; -FURO40TA7 PO; +GABA-529 PO; -GABA300C PO; +INSU100V52 SQ; -INSU200I4 SQ; -LISI10TA24 PO; +NIFE-39 PO; -PRED10TA3 PO; -PRED5TAB PO; -SPIR25TA PO; +SUCR500T PO; +TERB250T89 PO; +VITAD50000 PO
[2022-05-11 15:44] LABS: HEMATOCRIT 42.7 % (42-54); MEAN CORPUSCULAR HEMOGLOBIN 30.1 pg (27.0-33.0); MEAN CORPUSCULAR HGB CONC 32.6 g/dL (32.0-36.0); MEAN CORPUSCULAR VOLUME 92.4 fL (79-99); RED BLOOD CELL COUNT(AUTO) 4.62 MIL/uL (4.50-6.20); RED CELL DISTRIBUTION WIDTH 12.8 % (11.0-15.5)
[2022-05-11 15:45] LABS: POTASSIUM 4.1 mmol/L (3.5-5.1)
[2022-05-11 15:48] LABS: INR 0.93 (0.85-1.15); PROTHROMBIN TIME 10.1 SEC (9.6-11.6)
[2022-05-11 15:49] LABS: PARTIAL THROMBOPLASTIN TIME 26.9 SEC (26.3-35.5)
[2022-05-14 09:24] VITALS: BP 200/115
== END | disposition home or self-care (01) ==
LOC: DAH 10:00 → EDSTATUS 05-15 19:00
PROVIDERS: ATTEND Thoracic Surgery (Cardiothoracic Vascular Surgery)
DX: Z01.818 Encounter for other preprocedural examination (principal); Z20.822 Contact with and (suspected) exposure to COVID-19; N18.6 End stage renal disease; I25.2 Old myocardial infarction
CPT/HCPCS: 71045; 87426; 80048; 85027; 85610; 85730; 86850; 86900; 86901; 36415; 93005; A6260

== ENCOUNTER 2022-05-22 09:47 | Day surgery (SDC) | payer MEDICARE ==
[2022-05-21 11:27] LABS: HEMATOCRIT 42.2 % (42-54); MEAN CORPUSCULAR HEMOGLOBIN 30.6 pg (27.0-33.0); MEAN CORPUSCULAR HGB CONC 33.2 g/dL (32.0-36.0); MEAN CORPUSCULAR VOLUME 92.1 fL (79-99); RED BLOOD CELL COUNT(AUTO) 4.58 MIL/uL (4.50-6.20); RED CELL DISTRIBUTION WIDTH 12.7 % (11.0-15.5); WHITE BLOOD COUNT (AUTO) 10.1 K/uL (4.8-10.8)
[2022-05-21 11:33] VITALS: BP 149/101
[2022-05-21 11:39] LABS: INR 0.94 (0.85-1.15); PROTHROMBIN TIME 10.3 SEC (9.6-11.6)
[2022-05-21 11:45] LABS: CREATININE 4.5 mg/dL (0.5-1.5); POTASSIUM 4.4 mmol/L (3.5-5.1)
[2022-05-22] VITALS (15 sets, daily range): BP systolic 124–169; BP diastolic 82–100
[~2022-05-22] VITALS: Ht 162.6 cm; Wt 107.1 kg
[~2022-05-22 09:47] MED LIST changes: -AMOX1TAB15 PO; -AMOX500C2 PO; -AZIT250T9 PO; -BUDE0.5A3 IH; -CEFAZOLIN SODIUM 2 GM VIAL IVPB PRN; +CEFAZOLIN SODIUM 2 GM VIAL IVPB SCH; -INSU100V52 SQ; -NIFE-39 PO
[2022-05-22] MEDS ORDERED: 0.9% NACL 500ML IV.SOLN 500 ML IV ONE (10:16)
[2022-05-22 10:33] LABS: CREATININE 7.8 mg/dL (0.5-1.5); POTASSIUM 4.8 mmol/L (3.5-5.1)
[2022-05-22] MEDS ORDERED: KETAMINE HCL 100 MG/ML 5ML VIAL IJ ONE (10:35)
[2022-05-22] MEDS ORDERED: PROTAMINE SULFATE 10 MG/ML 25ML VIAL IV ONE (11:50)
[2022-05-22] MEDS ORDERED: LIDOCAINE HCL 1% 20 ML VIAL ONE (11:54)
[2022-05-22] MEDS ORDERED: BUPIVACAINE/PF 0.5% 30ML VIAL ONE (11:54)
[2022-05-22] MEDS ORDERED: MIDAZOLAM HCL 1 MG/ML 2ML VIAL ONE (12:26)
[2022-05-22] MEDS ORDERED: PROPOFOL 10 MG/ML 20ML VIAL IV ONE (12:26)
[2022-05-22] MEDS ORDERED: CEFAZOLIN SODIUM 2 GM VIAL IVPB ONE (12:28)
[2022-05-22] MEDS ORDERED: FENTANYL CITRATE PF 50 MCG/1 ML 2ML VIAL ONE (12:28)
[2022-05-22] MEDS ORDERED: PHENYLEPHRINE HCL 10 MG/ML 1ML VIAL IV ONE (12:44)
[2022-05-22] MEDS ORDERED: CEFAZOLIN SODIUM 1 GM VIAL IVPB ONE (12:53)
[2022-05-22] MEDS ORDERED: LIDOCAINE HCL 1% 20 ML VIAL MISC ONE (13:56)
[2022-05-22] MEDS ORDERED: BUPIVACAINE/PF 0.5% 30ML VIAL INJ ONE (13:56)
[2022-05-22] MEDS ORDERED: MEPERIDINE-PF 25 MG/ML SYG ONE (15:00)
== END 2022-05-22 15:55 | disposition home or self-care (01) ==
LOC: DAH 09:47
PROVIDERS: ATTEND Thoracic Surgery (Cardiothoracic Vascular Surgery)
DX: E11.22 Type 2 diabetes mellitus with diabetic chronic kidney disease (principal); Z20.822 Contact with and (suspected) exposure to COVID-19; I13.2 Hypertensive heart and chronic kidney disease with heart failure and with stage 5 chronic kidney disease, or end stage renal disease; I50.9 Heart failure, unspecified; N18.6 End stage renal disease; Z99.2 Dependence on renal dialysis; Z79.01 Long term (current) use of anticoagulants
CPT/HCPCS: 80048 ×2; 85027; 85610; 85730; 86850; 86900; 86901; 87426; 36415 ×2; 36830; 82948 ×2; A6260; J2720; A4663; A6207; J7030; A4452; J7040; J0690 ×3; J2250; J2704; J3490 ×3; J2175; J2370; A6446; G0168; A4649 ×3; C1713 ×2; A4930; C1768; A4215; A4223; A4222; A4221; J3010

== ENCOUNTER 2022-08-15 05:12 | Emergency (ER) | payer MEDICARE ==
[~2022-08-15] VITALS: Ht 162.6 cm; Wt 108.4 kg
[~2022-08-15 05:12] MED LIST changes: -CEFAZOLIN SODIUM 2 GM VIAL IVPB SCH
[2022-08-15] MEDS ORDERED: CYCLOBENZAPRINE HCL 10 MG TABLET PO ONE (06:00)
[2022-08-15] MEDS ORDERED: MORPHINE 4 MG SYG IVP ONE (06:00)
[2022-08-15] MEDS ORDERED: GABA300C PO (06:24)
[2022-08-15] MEDS ORDERED: CYCL-309 PO (06:24)
[2022-08-15] MEDS ORDERED: IBUP-1493 PO (06:24)
[2022-08-15 06:41] VITALS: BP 137/78
== END 2022-08-15 06:44 | disposition home or self-care (01) ==
LOC: EDH 05:12
DX: M54.50 Low back pain, unspecified (principal); I13.2 Hypertensive heart and chronic kidney disease with heart failure and with stage 5 chronic kidney disease, or end stage renal disease; E11.22 Type 2 diabetes mellitus with diabetic chronic kidney disease; N18.6 End stage renal disease; I50.9 Heart failure, unspecified; E78.00 Pure hypercholesterolemia, unspecified; Z79.4 Long term (current) use of insulin; Z79.82 Long term (current) use of aspirin; Z79.899 Other long term (current) drug therapy; Z99.2 Dependence on renal dialysis
CPT/HCPCS: 99284; 96374; J2270

== ENCOUNTER 2022-08-23 09:57 | Emergency (ER) | payer MEDICARE ==
[~2022-08-23] VITALS: Ht 162.6 cm; Wt 108.9 kg
[~2022-08-23 09:57] MED LIST changes: +CYCL-309 PO; +GABA300C PO; +IBUP-1493 PO
[2022-08-23 10:25] LABS: BASOPHILS % (AUTO) 0.6 % (0.0-5.0); EOSINOPHILS % (AUTO) 2.7 % (0.0-8.0); HEMATOCRIT 40.1 % (42-54); LYMPHOCYTES % (AUTO) 20.4 % (21.0-51.0); MEAN CORPUSCULAR HEMOGLOBIN 31.4 pg (27.0-33.0); MEAN CORPUSCULAR HGB CONC 32.2 g/dL (32.0-36.0); MEAN CORPUSCULAR VOLUME 97.6 fL (79-99); MONOCYTES % (AUTO) 4.2 % (3.0-13.0); NEUTROPHILS % (AUTO) 71.6 % (40.0-77.0); PLATELET COUNT (AUTO) 215 K/uL (130-400); RED BLOOD CELL COUNT(AUTO) 4.11 MIL/uL (4.50-6.20); RED CELL DISTRIBUTION WIDTH 12.8 % (11.0-15.5); WHITE BLOOD COUNT (AUTO) 12.4 K/uL (4.8-10.8)
[2022-08-23 10:40] LABS: ALANINE AMINOTRANSFERASE 9 U/L (12-78); ALBUMIN 3.7 g/dL (3.5-5.0); ASPARTATE AMINOTRANSFERASE 10 U/L (10-37); CARBON DIOXIDE 31 mmol/L (21-32); CHLORIDE 99 mmol/L (101-111); CREATININE 7.5 mg/dL (0.5-1.5); GLOMERULAR FILTR. RATE CALC 8 mL/min (>90); GLUCOSE,RANDOM 258 mg/dL (70-105); POTASSIUM 4.8 mmol/L (3.5-5.1); SODIUM SERUM 138 mmol/L (136-145); TOTAL PROTEIN, SERUM 8.1 g/dL (6.0-8.3); UREA NITROGEN, BLOOD 37 mg/dL (7-18)
[2022-08-23] MEDS ORDERED: ALBUTEROL 0.083% 2.5 MG/3 ML INH IH ONE (11:30)
[2022-08-23 13:01] VITALS: BP 120/88
[2022-08-23] MEDS ORDERED: ALBUHFA IH (13:29)
[2022-08-23] MEDS ORDERED: LORA10TA60 PO (13:29)
== END 2022-08-23 14:26 | disposition home or self-care (01) ==
LOC: EDH 09:57
DX: E11.22 Type 2 diabetes mellitus with diabetic chronic kidney disease (principal); I12.0 Hypertensive chronic kidney disease with stage 5 chronic kidney disease or end stage renal disease; N18.5 Chronic kidney disease, stage 5; Z99.2 Dependence on renal dialysis; M54.50 Low back pain, unspecified; E87.70 Fluid overload, unspecified; Z79.1 Long term (current) use of non-steroidal anti-inflammatories (NSAID); Z79.4 Long term (current) use of insulin; Z79.82 Long term (current) use of aspirin; Z79.899 Other long term (current) drug therapy
CPT/HCPCS: 36415; 71045; 80053; 84484; 85025; 85378; 93005; 94640

== ENCOUNTER 2022-09-12 10:48 | Emergency (ER) | payer MEDICARE ==
[~2022-09-12] VITALS: Ht 162.6 cm; Wt 108.4 kg
[~2022-09-12 10:48] MED LIST changes: +ALBUHFA IH; +LORA10TA60 PO
[2022-09-12 11:15] VITALS: BP 155/97
[2022-09-12] MEDS ORDERED: AMOX1TAB16 PO (14:23)
== END 2022-09-12 14:34 | disposition home or self-care (01) ==
LOC: EDH 10:48
DX: H66.91 Otitis media, unspecified, right ear (principal); J06.9 Acute upper respiratory infection, unspecified; J32.9 Chronic sinusitis, unspecified; E11.9 Type 2 diabetes mellitus without complications; I10 Essential (primary) hypertension; Z79.1 Long term (current) use of non-steroidal anti-inflammatories (NSAID); Z79.4 Long term (current) use of insulin; Z79.82 Long term (current) use of aspirin; Z79.899 Other long term (current) drug therapy
CPT/HCPCS: 71046

== ENCOUNTER → 2022-11-06 | Outpatient (CLI) | payer MEDICARE ==
[~2022-11-06] MED LIST changes: +AMOX1TAB16 PO; +REGADENOSON 0.4 MG/5 ML PF SYG IVP ONE
== END | disposition home or self-care (01) ==
LOC: SHCH 08:09
PROVIDERS: ATTEND Internal Medicine Cardiovascular Disease
DX: I20.9 Angina pectoris, unspecified (principal); R06.02 Shortness of breath
CPT/HCPCS: 78452; 96374; 93017; J2785; A9500 ×2

== ENCOUNTER → 2023-07-18 | Outpatient (CLI) | payer MEDICARE ==
[~2023-07-18] MED LIST changes: -REGADENOSON 0.4 MG/5 ML PF SYG IVP ONE
== END | disposition home or self-care (01) ==
LOC: SHCH 12:18
PROVIDERS: ATTEND Internal Medicine Cardiovascular Disease
DX: I73.9 Peripheral vascular disease, unspecified (principal); I87.1 Compression of vein; I87.2 Venous insufficiency (chronic) (peripheral)
CPT/HCPCS: 93925; 93970

== ENCOUNTER → 2023-10-01 | Outpatient (CLI) | payer MEDICARE | END | disposition home or self-care (01) | LOC: SHCH 14:34 | PROVIDERS: ATTEND Internal Medicine Cardiovascular Disease | DX: I08.3 Combined rheumatic disorders of mitral, aortic and tricuspid valves (principal); I42.8 Other cardiomyopathies | CPT/HCPCS: 93306 ==

== ENCOUNTER → 2024-11-05 | Outpatient (CLI) | payer MEDICARE, OTHER ==
--- NOTE | 2024-11-06 08:28 | HMCIMG ---
EXAMINATION: DUPLEX ULTRASOUND EXAMINATION OF THE BILATERAL LOWER EXTREMITY ARTERIES. CLINICAL HISTORY: Pain. COMPARISON: Bilateral lower extremity arterial doppler dated 07/18/2023. FINDINGS: Peak systolic velocities within the right lower arteries are as follows: Common femoral artery: 97 cm/s. Superficial femoral artery: 104 cm/s at proximal, 102 cm/s at mid, and 63 cm/s at distal segments. Popliteal artery: 83 cm/s at proximal and 70 cm/s at distal segments. Posterior tibial artery: 63 cm/s. Anterior tibial artery: 97 cm/s. Dorsalis pedis artery: 44 cm/s. The right lower limb arteries demonstrate triphasic waveforms in all arteries other than the posterior tibial artery which demonstrates monophasic waveforms. Peak systolic velocities within the left lower arteries are as follows: Common femoral artery: 96 cm/s. Superficial femoral artery: 77 cm/s at proximal, 103 cm/s at mid, and 107 cm/s at distal segments. Popliteal artery: 71 cm/s at proximal and 70 cm/s at distal segments. Posterior tibial artery: 65 cm/s. Anterior tibial artery: 56 cm/s. Dorsalis pedis artery: 177 cm/s. The left lower limb arteries demonstrate triphasic waveforms in all arteries. There is intimal wall thickening and multilevel atherosclerosis in both the lower limb arteries. There is raised velocity in the left dorsalis pedis artery with 20% to 49% stenosis. IMPRESSION: Mild intimal wall thickening and multilevel atherosclerosis in both the lower limb arteries. Both lower limb arteries demonstrate triphasic waveforms other than the right posterior tibial artery which demonstrates monophasic waveforms.Raised velocity in the left dorsalis pedis artery with 20% to 49% stenosis. /[employer]
== END | disposition home or self-care (01) ==
LOC: RAH 13:39
PROVIDERS: ATTEND Internal Medicine
DX: I70.203 Unspecified atherosclerosis of native arteries of extremities, bilateral legs (principal); M79.604 Pain in right leg; M79.605 Pain in left leg
CPT/HCPCS: 93925

== ENCOUNTER → 2025-02-02 | Outpatient (CLI) | payer OTHER, MEDICARE ==
[~2025-02-02] MED LIST changes: +IOHEXOL 350 MG/ML 100ML INFUS..BTL IV ONE
--- NOTE | 2025-02-02 18:44 | CARDIOLOGY ---
RAD REPORT: [facility] CT ANGIO RADIOLOGY REPORT: CORONARY CT ANGIOGRAPHY DATE: Feb 02, 2025 QUALITY: Excellent CLINICAL HISTORY AND INDICATION: [ chest pain ] TECHNIQUE: After obtaining a preliminary manager nicu image, contrast imaging performed on an [employer] [id number] scanner. A dedicated, limited window, coronary imaging protocol was used, with single breath-hold, retrospective ECG gating, and automated arrhythmia rejection. 100 cc of low osmolar contrast agent: Omnipaque 350 was delivered via a 18-gauge IV catheter in the right antecubital fossa, using a power injector and followed by 60 cc of normal saline bolus as a chaser. Collimated images were reformatted at 0.5 mm intervals, and sent to an offline independent workstation for interpretation, using 3D anatomic reconstructions: Curved multiplanar reconstructions, maximum intensity projections, and multiplanar imaging. 20 mg IV metoprolol was administered prior to scanning. 0.8 mg SL nitroglycerin was given. CORONARY ARTERY DESCRIPTIONS: The coronary arteries arise in normal position. Left main coronary artery: Normal caliber vessel that bifurcates into the LAD and LCx. Left anterior descending coronary artery: Normal caliber vessel and gives rise to diagonal and septal branches. Left circumflex coronary artery: Normal caliber, nondominant and gives rise to a large OM branch. Right coronary artery: Large, dominant vessel giving rise to the PL and PDA branches. This study is non-diagnostic due to abrupt spike in heart rate during scanning. Recommend optimizing home oral metoprolol prior to re-ordering and goal HR 60 bpm or choose different testing modality. Thoracic Aorta: Normal diameter. Marialuisa Cuevas MD [facility] MARIALUISA CUEVAS MD Feb 02, 2025 18:44
== END | disposition home or self-care (01) ==
LOC: RAH 07:52
PROVIDERS: ATTEND Internal Medicine Cardiovascular Disease
DX: I25.110 Atherosclerotic heart disease of native coronary artery with unstable angina pectoris (principal); R07.9 Chest pain, unspecified
CPT/HCPCS: 75574; J3490; Q9967